=== PATIENT | male | born 1950 | race Caucasian/White ===

== ENCOUNTER 2020-05-30 17:52 | Emergency (ER) | payer OTHER ==
[~2020-05-30] VITALS: Ht 180.3 cm; Wt 68.0 kg
[~2020-05-30 17:52] MED LIST: HYDACE5 PO; TOBR.3OPSO OP
[2020-05-30 19:07] LABS: BASOPHILS ABSOLUTE AUTO 0.03 K/mm3 (0.00-0.23); BASOPHILS PERCENT AUTO 0 % (0-2); EOSINOPHILS ABSOLUTE AUTO 0.15 K/mm3 (0.00-0.68); EOSINOPHILS PERCENT AUTO 2 % (0-6); Hematocrit 36.6 % (37.0-53.0); Hemoglobin 12.5 g/dL (13.5-17.5); IMMATURE GRAN ABSOLUTE AUTO 0.04 K/mm3 (0.00-0.10); IMMATURE GRAN PERCENT AUTO 1 % (0-1); LYMPHOCYTES ABSOLUTE AUTO 0.82 K/mm3 (0.84-5.20); LYMPHOCYTES PERCENT AUTO 10 % (21-46); MONOCYTES ABSOLUTE AUTO 0.48 K/mm3 (0.16-1.47); MONOCYTES PERCENT AUTO 6 % (4-13); Mean Corpuscular HGB 30.4 pg (26.0-34.0); Mean Corpuscular HGB Conc 34.2 g/dL (31.5-36.5); Mean Corpuscular Volume 89 fL (80-100); Mean Platelet Volume 9.4 fL (9.1-12.4); NEUTROPHILS ABSOLUTE AUTO 6.65 K/mm3 (1.96-9.15); NEUTROPHILS PERCENT AUTO 81 % (41-73); Platelet Count 183 K/mm3 (150-400); RDW Coefficient Variation 13.3 % (11.7-14.2); Red Blood Cell Count 4.11 M/mm3 (4.30-5.90); White Blood Cell Count 8.17 K/mm3 (4.00-11.30)
[2020-05-30 19:30] LABS: Alanine Aminotransfer (ALT/SGP 14 U/L (12-78); Albumin, Blood 3.1 g/dL (3.4-5.0); Alk Phos 67 U/L (50-136); Anion Gap 8 mmol/L (6-16); Aspartate Aminotrans (AST/SGOT 9 U/L (12-37); Bilirubin, Total 0.6 mg/dL (0.1-1.0); Blood Urea Nitrogen 13 mg/dL (8-24); Bun/Creatinine Ratio 10.7 (12.0-20.0); CO2, Blood 24 mmol/L (21-32); Calcium, Blood 8.2 mg/dL (8.5-10.1); Chloride, Blood 97 mmol/L (98-108); Creatinine, Blood 1.21 mg/dL (0.60-1.20); Globulin, Blood 3.2 g/dL (2.2-4.0); Glomerular Filtration Rate >60 (60-); Glucose, Blood 111 mg/dL (70-99); Potassium, Blood 3.7 mmol/L (3.5-5.5); Sodium, Blood 129 mmol/L (136-145); Total Protein, Blood 6.3 g/dL (6.4-8.2)
[2020-05-30] MEDS ORDERED: TAMS.4ER (19:30)
[2020-05-30 19:42] LABS: Free Thyroxine 1.22 ng/dL (0.70-1.60)
[2020-05-30 19:44] LABS: Thyroid Stimulating Hormone 1.04 uIU/mL (0.360-4.800); Triiodothyronine, Free 1.93 pg/mL (2.18-3.98)
[2020-05-30] MEDS ORDERED: FINA5 PO (19:56)
[2020-05-30] MEDS ORDERED: LEVSOD25 PO (19:56)
[2020-05-30 21:08] LABS: Source, Urine Clean Catch
[2020-05-30 21:12] LABS: Appearance, Urine Clear (Clear); Bilirubin, Urine Neg (Neg); Blood, Urine Neg (Neg); Color, Urine Yellow (P-Yellow); Glucose Qualitative, Urine Neg (Neg); Ketones, Urine Neg (Neg); Leukocyte Esterase, Urine 1+ (Neg); Nitrite, Urine Neg (Neg); Protein, Urine Neg (Neg); Urobilinogen, Urine 1+ (Normal)
[2020-05-30 21:21] LABS: Bacteria Rare /hpf; Red Blood Cells, Urine Not Seen /hpf (0-2); Squamous Epithelial Cells Rare /hpf (Few); White Blood Cells, Urine 0-2 /hpf (0-5)
== END 2020-05-30 21:54 | disposition home or self-care (01) ==
LOC: ER 17:52
PROVIDERS: Emergency Medicine
DX: R55 Syncope and collapse (principal); I10 Essential (primary) hypertension; F03.90 Unspecified dementia, unspecified severity, without behavioral disturbance, psychotic disturbance, mood disturbance, and anxiety; Z88.0 Allergy status to penicillin; Z87.891 Personal history of nicotine dependence
CPT/HCPCS: 36415; 71045; 80053; 81001; 84439; 84443; 84481; 84484; 85025; 87086; 93005; 93010; 96360; 99285-25; J7030

== ENCOUNTER 2020-06-12 13:03 | Emergency (ER) | payer OTHER ==
[~2020-06-12] VITALS: Ht 180.3 cm; Wt 65.8 kg
[~2020-06-12 13:03] MED LIST changes: +FINA5 PO; +LEVSOD25 PO; +TAMS.4ER
[2020-06-12 14:43] LABS: BASOPHILS ABSOLUTE AUTO 0.04 K/mm3 (0.00-0.23); BASOPHILS PERCENT AUTO 1 % (0-2); EOSINOPHILS ABSOLUTE AUTO 0.17 K/mm3 (0.00-0.68); EOSINOPHILS PERCENT AUTO 2 % (0-6); Hematocrit 42.5 % (37.0-53.0); Hemoglobin 14.6 g/dL (13.5-17.5); IMMATURE GRAN ABSOLUTE AUTO 0.05 K/mm3 (0.00-0.10); IMMATURE GRAN PERCENT AUTO 1 % (0-1); LYMPHOCYTES ABSOLUTE AUTO 1.31 K/mm3 (0.84-5.20); LYMPHOCYTES PERCENT AUTO 18 % (21-46); MONOCYTES ABSOLUTE AUTO 0.52 K/mm3 (0.16-1.47); MONOCYTES PERCENT AUTO 7 % (4-13); Mean Corpuscular HGB 30.9 pg (26.0-34.0); Mean Corpuscular HGB Conc 34.4 g/dL (31.5-36.5); Mean Corpuscular Volume 90 fL (80-100); Mean Platelet Volume 8.9 fL (9.1-12.4); NEUTROPHILS ABSOLUTE AUTO 5.41 K/mm3 (1.96-9.15); NEUTROPHILS PERCENT AUTO 72 % (41-73); Platelet Count 196 K/mm3 (150-400); RDW Coefficient Variation 13.2 % (11.7-14.2); RDW Standard Deviation 43.9 fL (35.1-46.3); Red Blood Cell Count 4.73 M/mm3 (4.30-5.90)
[2020-06-12 15:05] LABS: Alanine Aminotransfer (ALT/SGP 15 U/L (12-78); Albumin, Blood 3.8 g/dL (3.4-5.0); Albumin/Globulin Ratio 1.1 (0.8-1.8); Alk Phos 82 U/L (50-136); Anion Gap 4 mmol/L (6-16); Aspartate Aminotrans (AST/SGOT 9 U/L (12-37); Bilirubin, Total 0.7 mg/dL (0.1-1.0); Blood Urea Nitrogen 12 mg/dL (8-24); Bun/Creatinine Ratio 10.7 (12.0-20.0); CO2, Blood 28 mmol/L (21-32); Calcium, Blood 8.9 mg/dL (8.5-10.1); Chloride, Blood 98 mmol/L (98-108); Creatinine, Blood 1.12 mg/dL (0.60-1.20); Globulin, Blood 3.6 g/dL (2.2-4.0); Glomerular Filtration Rate >60 (60-); Glucose, Blood 88 mg/dL (70-99); Magnesium, Blood 2.5 mg/dL (1.6-2.4); Sodium, Blood 130 mmol/L (136-145); Total Protein, Blood 7.4 g/dL (6.4-8.2)
== END 2020-06-12 15:23 | disposition home or self-care (01) ==
LOC: ER 13:03
PROVIDERS: Emergency Medicine
DX: R53.1 Weakness (principal); F03.90 Unspecified dementia, unspecified severity, without behavioral disturbance, psychotic disturbance, mood disturbance, and anxiety; N40.0 Benign prostatic hyperplasia without lower urinary tract symptoms; I10 Essential (primary) hypertension; Z87.891 Personal history of nicotine dependence; Z88.0 Allergy status to penicillin; Z79.899 Other long term (current) drug therapy
CPT/HCPCS: 36415; 80053; 83735; 85025; 93005; 93010; 99285-25

== ENCOUNTER 2021-08-10 12:35 | Inpatient (IN) | payer OTHER ==
[~2021-08-10] VITALS: Ht 180.3 cm; Wt 65.4 kg
[~2021-08-10 12:35] MED LIST changes: +ALBU90OI INH; +ATOR20 PO; +CYAN1000I IM; +DONE5 PO; +MELA3 PO; +QUET25 PO
[2021-08-10 15:01] LABS: Alanine Aminotransfer (ALT/SGP 17 U/L (12-78); Albumin, Blood 2.9 g/dL (3.4-5.0); Alk Phos 52 U/L (50-136); Anion Gap 9 mmol/L (6-16); Aspartate Aminotrans (AST/SGOT 13 U/L (12-37); Bilirubin, Total 0.7 mg/dL (0.1-1.0); Blood Urea Nitrogen 24 mg/dL (8-24); Bun/Creatinine Ratio 23.3 (12.0-20.0); CO2, Blood 22 mmol/L (21-32); Calcium, Blood 8.3 mg/dL (8.5-10.1); Chloride, Blood 104 mmol/L (98-108); Creatinine, Blood 1.03 mg/dL (0.60-1.20); Glomerular Filtration Rate >60 (60-); Glucose, Blood 98 mg/dL (70-99); Sodium, Blood 135 mmol/L (136-145); Total Protein, Blood 5.9 g/dL (6.4-8.2)
[2021-08-10 15:09] LABS: Source, Urine Voided
[2021-08-10 15:10] LABS: Base Excess Venous -0.2 mmol/L; Bicarbonate Venous 24.2 mmol/L (24.0-30.0); PCO2 Venous 31.5 mmHg (38-42); PO2 Venous 156 mmHg (38-42); pH Blood Venous 7.48 (7.34-7.37)
[2021-08-10 15:16] LABS: Appearance, Urine Clear (Clear); BASOPHILS PERCENT AUTO 0 % (0-2); Bilirubin, Urine Neg (Neg); Blood, Urine 1+ (Neg); Color, Urine Yellow (P-Yellow); EOSINOPHILS ABSOLUTE AUTO 0.01 K/mm3 (0.00-0.68); EOSINOPHILS PERCENT AUTO 0 % (0-6); Glucose Qualitative, Urine Neg (Neg); IMMATURE GRAN ABSOLUTE AUTO 0.01 K/mm3 (0.00-0.10); IMMATURE GRAN PERCENT AUTO 0 % (0-1); Ketones, Urine Neg (Neg); LYMPHOCYTES ABSOLUTE AUTO 0.91 K/mm3 (0.84-5.20); LYMPHOCYTES PERCENT AUTO 23 % (21-46); Leukocyte Esterase, Urine Neg (Neg); MONOCYTES ABSOLUTE AUTO 0.23 K/mm3 (0.16-1.47); MONOCYTES PERCENT AUTO 6 % (4-13); Mean Corpuscular HGB 37.6 pg (26.0-34.0); Mean Corpuscular HGB Conc 34.9 g/dL (31.5-36.5); Mean Corpuscular Volume 108 fL (80-100); NEUTROPHILS ABSOLUTE AUTO 2.89 K/mm3 (1.96-9.15); NEUTROPHILS PERCENT AUTO 71 % (41-73); Nitrite, Urine Neg (Neg); Protein, Urine Neg (Neg); RDW Coefficient Variation 16.4 % (11.7-14.2); RDW Standard Deviation 63.9 fL (35.1-46.3); Red Blood Cell Count 1.17 M/mm3 (4.30-5.90); Specific Gravity, Urine 1.015 (1.003-1.022); Urobilinogen, Urine NORM (Normal); White Blood Cell Count 4.05 K/mm3 (4.00-11.30)
[2021-08-10 15:17] LABS: Magnesium, Blood 2.1 mg/dL (1.6-2.4); Phosphorus, Blood 3.9 mg/dL (2.5-4.9); Troponin I 0.041 ng/mL (0.000-0.040)
[2021-08-10 15:18] LABS: International Normalized Ratio 1.18; Prothrombin Time Results 12.3 Sec (9.7-11.5)
[2021-08-10 15:21] LABS: Hemoglobin 4.4 g/dL (13.5-17.5)
[2021-08-10 15:22] LABS: Hematocrit 12.6 % (37.0-53.0); Platelet Count 9 K/mm3 (150-400)
[2021-08-10 15:34] LABS: Bacteria Few /hpf; Squamous Epithelial Cells Rare /hpf (Few); White Blood Cells, Urine 0-2 /hpf (0-5)
[2021-08-10 16:49] LABS: SARS-Cov-2 (COVID-19) PCR, MMC NEGATIVE (NEGATIVE)
[2021-08-11 04:48] LABS: Hematocrit 19.9 % (37.0-53.0); Hemoglobin 6.8 g/dL (13.5-17.5)
[2021-08-11 05:02] LABS: BASOPHILS PERCENT AUTO 0 % (0-2); EOSINOPHILS ABSOLUTE AUTO 0.05 K/mm3 (0.00-0.68); EOSINOPHILS PERCENT AUTO 1 % (0-6); Hematocrit 19.6 % (37.0-53.0); Hemoglobin 6.8 g/dL (13.5-17.5); IMMATURE GRAN ABSOLUTE AUTO 0.01 K/mm3 (0.00-0.10); IMMATURE GRAN PERCENT AUTO 0 % (0-1); LYMPHOCYTES ABSOLUTE AUTO 0.97 K/mm3 (0.84-5.20); LYMPHOCYTES PERCENT AUTO 26 % (21-46); MONOCYTES PERCENT AUTO 5 % (4-13); Mean Corpuscular HGB 32.7 pg (26.0-34.0); Mean Corpuscular HGB Conc 34.7 g/dL (31.5-36.5); NEUTROPHILS ABSOLUTE AUTO 2.53 K/mm3 (1.96-9.15); NEUTROPHILS PERCENT AUTO 67 % (41-73); RDW Coefficient Variation 20.5 % (11.7-14.2); RDW Standard Deviation 69.5 fL (35.1-46.3); Red Blood Cell Count 2.08 M/mm3 (4.30-5.90); White Blood Cell Count 3.76 K/mm3 (4.00-11.30)
[2021-08-11 05:10] LABS: Mean Corpuscular Volume 94 fL (80-100)
[2021-08-11 05:12] LABS: Platelet Count 5 K/mm3 (150-400)
--- NOTE | 2021-08-11 05:55 | NUR ---
RECIEVED PT ER ADMIT AT AROUND 0000. PT HAD BEEN WITH SITTER IN ER AFTER HE PULLED IV'S MID TRANSFUSION. HERE, SOFT WRIST RESTRAINTS WERE USED AT FIRST, HOWEVER PT WAS ABLE TO SLIP OUT AND ENDED UP PULLING ONE OUT OF TWO IV'S WELL GETTING OUT OF BED TO UNINATE IN TRASH CAN. PT WAS VERY UNSTEADY ON FEET AND NEEDED HELP BACK TO BED. LOCKED WRIST REASTRAINTS WERE USED NEXT AND WORKED TO STOP PT FROM GAING ACCESS TO IV AND FALL PREVENTION. PT IS ORIENTED TO SELF, REMAINS AGGITATED OVER RESTRAINTS AND DOES NOT KNOW OWN LIMITS. WILL BE HERE IN THE MORNING TO HELP PT ORIENT. 1U ADMINISTERED. BED ALRM ON AND STAFF WILL CONT TO MONITOR.
[2021-08-11 06:27] LABS: Anion Gap 7 mmol/L (6-16); Blood Urea Nitrogen 21 mg/dL (8-24); Bun/Creatinine Ratio 22.7 (12.0-20.0); CO2, Blood 23 mmol/L (21-32); Calcium, Blood 8.1 mg/dL (8.5-10.1); Chloride, Blood 106 mmol/L (98-108); Creatinine, Blood 0.92 mg/dL (0.60-1.20); Glomerular Filtration Rate >60 (60-); Glucose, Blood 92 mg/dL (70-99); Potassium, Blood 3.7 mmol/L (3.5-5.5); Sodium, Blood 136 mmol/L (136-145)
[2021-08-11 14:57] LABS: BASOPHILS PERCENT AUTO 0 % (0-2); EOSINOPHILS ABSOLUTE AUTO 0.05 K/mm3 (0.00-0.68); EOSINOPHILS PERCENT AUTO 1 % (0-6); Hematocrit 22.2 % (37.0-53.0); Hemoglobin 7.9 g/dL (13.5-17.5); IMMATURE GRAN ABSOLUTE AUTO 0.02 K/mm3 (0.00-0.10); IMMATURE GRAN PERCENT AUTO 0 % (0-1); LYMPHOCYTES ABSOLUTE AUTO 1.04 K/mm3 (0.84-5.20); LYMPHOCYTES PERCENT AUTO 23 % (21-46); MONOCYTES PERCENT AUTO 7 % (4-13); Mean Corpuscular HGB 32.9 pg (26.0-34.0); Mean Corpuscular HGB Conc 35.6 g/dL (31.5-36.5); Mean Corpuscular Volume 93 fL (80-100); Mean Platelet Volume 9.6 fL (9.1-12.4); NEUTROPHILS ABSOLUTE AUTO 3.19 K/mm3 (1.96-9.15); NEUTROPHILS PERCENT AUTO 69 % (41-73); RDW Coefficient Variation 19.8 % (11.7-14.2); RDW Standard Deviation 64.3 fL (35.1-46.3)
[2021-08-11 15:02] LABS: Platelet Count 6 K/mm3 (150-400)
--- NOTE | 2021-08-11 18:14 | NUR ---
SHIFT SUMMARY 71 Y MALE ADMITED WITH SEVERE ANEMIA AND HX OF DEMENTIA. PT HAD RECIEVED 1 UNITS PRBC'S TODAY AND 1 UNIT FFP TODAY FOR A TOTAL OF 3 UNITS DURING THIS STAY. PT TOLERATED WELL. PT HAD BEEN IN RESTRAINTS DURING NIGHT AND MORNING FOR FALL RISK AND TO PROTECT IV LINES. ARRIVED THIS MORNING AND HAS REMAINED WITH PT T/O DAY TO ASSIST WITH REDIRECTING AND ASSISTING WITH PERSONAL CARE AND RESTRAINTS WERE REMOVED AT THAT TIME. HGB INCREASED FROM 6.8 TO 7.9 AFTER TRANSFUSION AND PLATELETS FROM 5 TO 7. NO NEW ORDERS FOR BLOOD PRODUCTS AT THSI TIME. PT WAS MEDICATED X1 WITH APRESOLINE FOR ELEVATED BP. REMAINS AT BEDSIDE, NO OTHER CHANGES THIS SHIFT.
--- NOTE | 2021-08-11 23:38 | NUR ---
ASSESSED PT FOR FEVER - NO FEBRILE SYMPTOMS, PT IS ASLEEP IN BED. DENIES DIAPHORESIS, CLAMMINESS, CHILLS. ORAL TEMP IS 100.1. COVERED WITH A LIGHT BLANKET. WILL CONTINUE TO MONITOR.
[2021-08-12 05:10] LABS: BASOPHILS PERCENT AUTO 0 % (0-2); EOSINOPHILS ABSOLUTE AUTO 0.05 K/mm3 (0.00-0.68); EOSINOPHILS PERCENT AUTO 2 % (0-6); Hematocrit 19.8 % (37.0-53.0); Hemoglobin 6.9 g/dL (13.5-17.5); IMMATURE GRAN ABSOLUTE AUTO 0.01 K/mm3 (0.00-0.10); IMMATURE GRAN PERCENT AUTO 0 % (0-1); LYMPHOCYTES PERCENT AUTO 33 % (21-46); MONOCYTES ABSOLUTE AUTO 0.25 K/mm3 (0.16-1.47); MONOCYTES PERCENT AUTO 8 % (4-13); Mean Corpuscular HGB 32.7 pg (26.0-34.0); Mean Corpuscular HGB Conc 34.8 g/dL (31.5-36.5); Mean Corpuscular Volume 94 fL (80-100); NEUTROPHILS PERCENT AUTO 57 % (41-73); RDW Coefficient Variation 19.8 % (11.7-14.2); RDW Standard Deviation 64.7 fL (35.1-46.3); Red Blood Cell Count 2.11 M/mm3 (4.30-5.90); White Blood Cell Count 3.31 K/mm3 (4.00-11.30)
[2021-08-12 05:13] LABS: Platelet Count 5 K/mm3 (150-400)
[2021-08-12 05:53] LABS: Alanine Aminotransfer (ALT/SGP 15 U/L (12-78); Albumin, Blood 2.6 g/dL (3.4-5.0); Albumin/Globulin Ratio 1.1 (0.8-1.8); Alk Phos 53 U/L (50-136); Anion Gap 7 mmol/L (6-16); Aspartate Aminotrans (AST/SGOT 16 U/L (12-37); Bilirubin, Total 1.2 mg/dL (0.1-1.0); Blood Urea Nitrogen 23 mg/dL (8-24); Bun/Creatinine Ratio 21.1 (12.0-20.0); CO2, Blood 23 mmol/L (21-32); Calcium, Blood 7.9 mg/dL (8.5-10.1); Chloride, Blood 103 mmol/L (98-108); Creatinine, Blood 1.09 mg/dL (0.60-1.20); Globulin, Blood 2.4 g/dL (2.2-4.0); Glomerular Filtration Rate >60 (60-); Glucose, Blood 91 mg/dL (70-99); Lactate Dehydrogenase (Ld),Bld 223 U/L (100-240); Potassium, Blood 3.6 mmol/L (3.5-5.5); Sodium, Blood 133 mmol/L (136-145)
--- NOTE | 2021-08-12 07:24 | NUR ---
SHIFT SUMMARY ROBERT HAD A PLATELET COUNT OF 5, AND HGB OF 6.9. RECEIVED ORDERS FOR 1 UNIT PRBC AND 1 UNIT PLATELETS. ADMINISTERED 1UNIT PLATELETS, GAVE REPORT TO ONCOMING DAY SHIFT NURSE TO VERIFY SLIP FOR PRBC. PT LUNGS WHEEZY AFTER 1 UNIT PLATELETS. PT'S MAX TEMP LAST NIGHT WAS 100.1. NO C/O DIAPHORESIS, CHILLS, OR PAIN. WADE AT BEDSIDE, SPENT THE NIGHT. PT REMAINED FREE OF RESTRAINTS WITH NO ATTEMPTS TO REMOVE IV.
--- NOTE | 2021-08-12 17:33 | NUR ---
SHIFT SUMMARY 71 Y MALE ADMITED WITH SEVERE ANEMIA AND HX OF DEMENTIA. PT HAD RECIEVED 1 UNIT PLATLETS THIS MORNING AND 2 UNITS PRBC'S TODAY FOR A TOTAL OF 5 UNITS PRBC'S DURING THIS STAY. PT TOLERATED WELL. HAS REMAINED WITH PT T/O DAY TO ASSIST WITH REDIRECTING AND ASSISTING WITH PERSONAL CARE. HEMATOLOGY CONSULT CALLED IN TO DR. AMAYA ANSWEREING SERVICE FOR TOMORROW. NO OTHER CHANGES THIS SHIFT.
--- NOTE | 2021-08-13 04:27 | NUR ---
SHIFT SUMMARY AT THIS TIME, PT'S VSS AND PT DENIES ANY PAIN. LUNGS ARE COARSE IN UPPER LEFT LOBE. WADE AT BEDSIDE REPORTS SHE DOESN'T THINK THAT ROBERT IS IN PAIN, BUT HE SEEMS MORE SLEEPY TODAY. WADE ASSISTS DIVINE TO USE THE BATHROOM, AND ALSO WITH THE URINAL. HE HAS REMAINED CALM THIS EVENING WITH HER IN THE ROOM. PLAN FOR HEMATOLOGY CONSULT FRIDAY WITH DR. BROOKS.
--- NOTE | 2021-08-13 04:39 | NUR ---
SHIFT SUMMARY PT SLEPT WELL THIS SHIFT, REQUIRED ONLY ONE PRN DOSE OF TRAMADOL. CONSULTS WITH ORTHOPEDIC DR. SWEET FOR RIGHT FRACTURED HIP (POA IN ER FROM FALL AT HOME) AND VASCULAR CONSULT WITH DR. COULTER FOR EVALUATION OF VENOUS ULCERS/ARTERIAL ULCERS ON RLE PLANNED FOR FRIDAY. PT WITH IV IN NAVEED. VSS, NO ACUTE CHANGES.
[2021-08-13 05:15] LABS: BASOPHILS PERCENT AUTO 0 % (0-2); EOSINOPHILS ABSOLUTE AUTO 0.07 K/mm3 (0.00-0.68); EOSINOPHILS PERCENT AUTO 2 % (0-6); Hematocrit 25.4 % (37.0-53.0); IMMATURE GRAN ABSOLUTE AUTO 0.01 K/mm3 (0.00-0.10); IMMATURE GRAN PERCENT AUTO 0 % (0-1); LYMPHOCYTES ABSOLUTE AUTO 0.95 K/mm3 (0.84-5.20); LYMPHOCYTES PERCENT AUTO 30 % (21-46); MONOCYTES ABSOLUTE AUTO 0.26 K/mm3 (0.16-1.47); MONOCYTES PERCENT AUTO 8 % (4-13); Mean Corpuscular HGB 32.6 pg (26.0-34.0); Mean Corpuscular HGB Conc 35.4 g/dL (31.5-36.5); Mean Corpuscular Volume 92 fL (80-100); Mean Platelet Volume 11.6 fL (9.1-12.4); NEUTROPHILS ABSOLUTE AUTO 1.91 K/mm3 (1.96-9.15); NEUTROPHILS PERCENT AUTO 60 % (41-73); RDW Coefficient Variation 17.8 % (11.7-14.2); RDW Standard Deviation 57.2 fL (35.1-46.3); RETICULOCYTE COUNT PERCENT 1.09 % (0.50-2.50); Red Blood Cell Count 2.76 M/mm3 (4.30-5.90)
[2021-08-13 05:28] LABS: Platelet Count 24 K/mm3 (150-400)
--- NOTE | 2021-08-13 18:44 | NUR ---
SHIFT SUMMARY PT ALERT TO SELF AND FAMILY ONLY. AT THE BEDSIDE FOR THE ENTIRE SHIFT. IS PRIMARY CAREGIVER TO THE PATIENT AND ASSISTS WITH HIS CARE WHILE AT THE HOSPITAL. PT SEEN BY DR. AMAYA TODAY AND IS TO HAVE A BONE MARROW BIOPSY DONE TOMORROW. UP WITH A STAND BY ASSIST AND ABLE TO GET INTO THE CHAIR FOR DINNER. WORKED WITH P/T AND O/T. VSS. WILL REPORT TO NOC RN.
--- NOTE | 2021-08-14 05:05 | NUR ---
SHIFT SUMMARY: ROBERT IS A VERY QUITE MAN, ANSWERED ONLY A FEW QUESTIONS THE TENDS TO ANSWER FOR HIM. STAYS AT BEDSIDE AND ASSIST IN ALL CARE AND NEEDS. NO BEHAVORIAL ISSUES TONIGHT. ROBERT COOPERATIVE WITH ALL CARE AND HAS BEEN PLEASANT. FELL TO SLEEP EARLY AND SLEPT T/O THE NIGHT. NO ACUTE CHANGES WERE NOTED. CALL LIGHT IN REACH.
[2021-08-14 08:11] LABS: Hemoglobin 9.1 g/dL (13.5-17.5); Mean Corpuscular HGB 32.3 pg (26.0-34.0); Mean Corpuscular Volume 92 fL (80-100); Mean Platelet Volume 9.6 fL (9.1-12.4); RDW Coefficient Variation 17.2 % (11.7-14.2); Red Blood Cell Count 2.82 M/mm3 (4.30-5.90); White Blood Cell Count 3.56 K/mm3 (4.00-11.30)
[2021-08-14 08:20] LABS: Platelet Count 16 K/mm3 (150-400)
[2021-08-14 11:57] LABS: Hematocrit 25.6 % (37.0-53.0); Hemoglobin 8.9 g/dL (13.5-17.5); Mean Corpuscular HGB 32.4 pg (26.0-34.0); Mean Corpuscular HGB Conc 34.8 g/dL (31.5-36.5); Mean Corpuscular Volume 93 fL (80-100); Mean Platelet Volume 10.2 fL (9.1-12.4); Platelet Count 71 K/mm3 (150-400); RDW Coefficient Variation 17.5 % (11.7-14.2); RDW Standard Deviation 57.1 fL (35.1-46.3); Red Blood Cell Count 2.75 M/mm3 (4.30-5.90); White Blood Cell Count 3.38 K/mm3 (4.00-11.30)
--- NOTE | 2021-08-14 14:00 | NUR ---
PATIENT ARRIVED BACK FROM BONE MARROW BIOPSY OF LOWER SPINE. PATIENT DENIES ANY PAIN OR DISCOMFORT. SITE C/D/I. AT BEDSIDE AND PATIENT GIVEN LUNCH TRAY. DENIES ANY NEEDS AT THIS TIME.
--- NOTE | 2021-08-14 15:45 | NUR ---
Upon receiving a request for ACP education, I visit with patient and spouse, Marry. Advance Directive (AD) education was attempted and Marry explained that they have an AD on file at the [facility]. She then talks at length about solid family and neighborhood support, patient symptoms and bone marrow biopsy. She also discusses the of her brother and her granddaughter. I encourage self-care and provide therapeutic listening and grief support. I will continue to remain available to patient and family.
--- NOTE | 2021-08-14 17:07 | NUR ---
PATIENT A/O TO SELF AND FAMILY ONLY, AT BEDSIDE THROUGHOUT THE DAY ASSISTING WITH CARE. VSS, ON RA. 2 UNITS PLATELETS GIVEN THIS AM AND BONE MARROW BIOPSY DONE THIS AFTERNOON. BRUSING TO R EYE AND L HIP AND SMALL SCATTERED BRUISING T/O. UP WITH SBA TO RESTROOM. TOLERATING DIET. DENIES ANY PAIN OR DISCOMFORT. NO NEW CONCERNS THIS SHIFT.
--- NOTE | 2021-08-15 04:43 | NUR ---
SHIFT SUMMARY; NO ACUTE CHANGES TO REPORT. AT BEDSIDE, HELPS IN ALL CARE. FOLLOWED DIRECTIONS APPROPRIATLY. NO PAIN OR DISCOMFORT. VS WNL, AFEBRILE, CALL LIGHT IN REACH OF AND USED APPROPRIATLY.
[2021-08-15 09:34] LABS: BASOPHILS PERCENT AUTO 0 % (0-2); EOSINOPHILS ABSOLUTE AUTO 0.07 K/mm3 (0.00-0.68); EOSINOPHILS PERCENT AUTO 3 % (0-6); Hematocrit 25.8 % (37.0-53.0); Hemoglobin 8.8 g/dL (13.5-17.5); IMMATURE GRAN PERCENT AUTO 0 % (0-1); LYMPHOCYTES ABSOLUTE AUTO 0.85 K/mm3 (0.84-5.20); LYMPHOCYTES PERCENT AUTO 31 % (21-46); MONOCYTES ABSOLUTE AUTO 0.13 K/mm3 (0.16-1.47); MONOCYTES PERCENT AUTO 5 % (4-13); Mean Corpuscular HGB 32.4 pg (26.0-34.0); Mean Corpuscular HGB Conc 34.1 g/dL (31.5-36.5); Mean Corpuscular Volume 95 fL (80-100); Mean Platelet Volume 11.1 fL (9.1-12.4); NEUTROPHILS ABSOLUTE AUTO 1.66 K/mm3 (1.96-9.15); NEUTROPHILS PERCENT AUTO 61 % (41-73); Platelet Count 65 K/mm3 (150-400); RDW Coefficient Variation 17.4 % (11.7-14.2); RDW Standard Deviation 57.2 fL (35.1-46.3); Red Blood Cell Count 2.72 M/mm3 (4.30-5.90); White Blood Cell Count 2.71 K/mm3 (4.00-11.30)
[2021-08-15] MEDS ORDERED: Acetaminophen650 M1 PO (13:19)
--- NOTE | 2021-08-15 13:50 | NUR ---
PT AWAKE, RESTING QUIETLY IN BED AT START OF SHIFT. 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 PT UP INDEPENDENTLY TO BTHRM NEEDED. DR STOCKTON IN TO SEE PT, DISCUSSED PLAN OF CARE. PT WANTING TO GO HOME TODAY. PT TO F/U WITH ONCOLOGY AT D/C. REPORTED ALREADY HAVING CONTACT WITH DR HOWARD. SHE WILL CALL TODAY FOR F/U APPOINTMENT. PT TO HAVE LABS DRAWN ON FRIDAY, BEFORE APPT ON FRIDAY. SCRIPT SENT WITH PT/ FOR LAB. D/C INSTRUCTIONS REVIEWED WITH PT AND . VERBALIZED UNDERSTANDING. PT ASSISTED OUT TO SON'S CAR VIA W/C. DENIED FURTHER NEEDS.
[2021-08-20 13:11] LABS: CELLS ANALYZED 20 (.); CELLS COUNTED 20 (.); CELLS KARYOTYPED 4 (.); CYTOGENETIC RESULT Comment: (.); DIRECTOR REVIEW: Comment: (.); GTG BAND RESOLUTION ACHIEVED 400 (.); INTERPETATION Comment: (.); SPECIMEN TYPE Comment: (.)
[2021-08-21 09:13] LABS: Performing Lab SYMBIODX; Test Name BM BIOPSY
== END 2021-08-15 13:50 | disposition home health service (06) | DRG 841 ==
LOC: ER 12:35 → ERHOLD 12:36 → MEDS 12:36
PROVIDERS: Emergency Medicine; Internal Medicine; Internal Medicine Hematology & Oncology; Pathology Clinical Pathology/Laboratory Medicine; ADMIT Hospitalist
PROC: 30233N1 Transfusion of Nonautologous Red Blood Cells into Peripheral Vein, Percutaneous Approach (ICD-10-PCS; principal; 2021-08-11)
PROC: 30233K1 Transfusion of Nonautologous Frozen Plasma into Peripheral Vein, Percutaneous Approach (ICD-10-PCS; 2021-08-11)
PROC: 07DR3ZX Extraction of Iliac Bone Marrow, Percutaneous Approach, Diagnostic (ICD-10-PCS; 2021-08-14)
DX: C94.6 Myelodysplastic disease, not elsewhere classified (principal); D61.818 Other pancytopenia; E87.1 Hypo-osmolality and hyponatremia; Z20.822 Contact with and (suspected) exposure to COVID-19; I10 Essential (primary) hypertension; G31.83 Neurocognitive disorder with Lewy bodies; F02.80 Dementia in other diseases classified elsewhere, unspecified severity, without behavioral disturbance, psychotic disturbance, mood disturbance, and anxiety; G40.909 Epilepsy, unspecified, not intractable, without status epilepticus; E78.00 Pure hypercholesterolemia, unspecified; N40.0 Benign prostatic hyperplasia without lower urinary tract symptoms; R29.6 Repeated falls; Z98.890 Other specified postprocedural states; Z88.0 Allergy status to penicillin; Z79.51 Long term (current) use of inhaled steroids; Z79.899 Other long term (current) drug therapy
CPT/HCPCS: 20220; 36415; 36430; 70450; 71045; 77012; 80048; 80053; 81001; 81003; 82131; 82140; 82272; 82340; 82436; 82507; 82570; 82607; 82746; 82803; 83605; 83615; 83735; 83935; 83945; 84100; 84105; 84133; 84300; 84392; 84484; 84560; 85014; 85018; 85025; 85027; 85045; 85097; 85610; 86850; 86900; 86901; 86923; 88184; 88185; 93005; 93010; 96374; 96376; 97110; 97116; 97161; 97165; 97535; 99285-25; A9270; G0378; J0360; J7030; J7050; P9016; P9053; P9059; U0004

== ENCOUNTER → 2021-08-28 | Outpatient (CLI) | payer OTHER ==
[~2021-08-28] MED LIST changes: +Acetaminophen650 M1 PO; +LEVE500 PO; -TAMS.4ER; +TAMS.4ER PO
== END | disposition home or self-care (01) ==
LOC: LAB SHORT 11:38
PROVIDERS: Internal Medicine Hematology & Oncology
DX: D61.818 Other pancytopenia (principal)
CPT/HCPCS: 88184; 88185

== ENCOUNTER 2021-09-02 16:32 | Inpatient (IN) | payer OTHER ==
[~2021-09-02] VITALS: Ht 180.3 cm; Wt 66.2 kg
[~2021-09-02 16:32] MED LIST changes: -LEVE500 PO
[2021-09-02 17:15] LABS: BASOPHILS ABSOLUTE AUTO 0.01 K/mm3 (0.00-0.23); BASOPHILS PERCENT AUTO 0 % (0-2); EOSINOPHILS ABSOLUTE AUTO 0.02 K/mm3 (0.00-0.68); EOSINOPHILS PERCENT AUTO 1 % (0-6); IMMATURE GRAN ABSOLUTE AUTO 0.05 K/mm3 (0.00-0.10); IMMATURE GRAN PERCENT AUTO 2 % (0-1); LYMPHOCYTES ABSOLUTE AUTO 0.89 K/mm3 (0.84-5.20); LYMPHOCYTES PERCENT AUTO 32 % (21-46); MONOCYTES ABSOLUTE AUTO 0.25 K/mm3 (0.16-1.47); MONOCYTES PERCENT AUTO 9 % (4-13); Mean Corpuscular HGB 32.3 pg (26.0-34.0); Mean Corpuscular HGB Conc 35.2 g/dL (31.5-36.5); Mean Corpuscular Volume 92 fL (80-100); Mean Platelet Volume 13.6 fL (9.1-12.4); NEUTROPHILS PERCENT AUTO 57 % (41-73); NRBC ABSOLUTE 0.02 K/mm3 (0.00-0.02); NRBC Auto 0.7 /100 WBC (0.0-0.2); RDW Coefficient Variation 17.2 % (11.7-14.2); RDW Standard Deviation 55.5 fL (35.1-46.3); Red Blood Cell Count 1.55 M/mm3 (4.30-5.90); White Blood Cell Count 2.82 K/mm3 (4.00-11.30)
[2021-09-02 17:18] LABS: Hematocrit 14.2 % (37.0-53.0); Platelet Count 4 K/mm3 (150-400)
[2021-09-02 17:21] LABS: Alanine Aminotransfer (ALT/SGP 15 U/L (12-78); Albumin/Globulin Ratio 1.1 (0.8-1.8); Alk Phos 74 U/L (50-136); Anion Gap 8 mmol/L (6-16); Aspartate Aminotrans (AST/SGOT 13 U/L (12-37); Bilirubin, Total 1.1 mg/dL (0.1-1.0); Blood Urea Nitrogen 17 mg/dL (8-24); CO2, Blood 22 mmol/L (21-32); Calcium, Blood 8.1 mg/dL (8.5-10.1); Chloride, Blood 99 mmol/L (98-108); Globulin, Blood 2.8 g/dL (2.2-4.0); Glomerular Filtration Rate >60 (60-); Glucose, Blood 99 mg/dL (70-99); Sodium, Blood 129 mmol/L (136-145); Total Protein, Blood 5.8 g/dL (6.4-8.2); Troponin I <0.015 ng/mL (0.000-0.040)
[2021-09-02 19:37] LABS: Influenza A, PCR NEGATIVE (NEGATIVE); Influenza B, PCR NEGATIVE (NEGATIVE); Resp Syncytial Virus, PCR NEGATIVE (NEGATIVE); SARS-Cov-2 (COVID-19) PCR, MMC NEGATIVE (NEGATIVE)
[2021-09-03 05:21] LABS: Mean Corpuscular HGB 31.2 pg (26.0-34.0); Mean Corpuscular HGB Conc 35.8 g/dL (31.5-36.5); Mean Platelet Volume 10.5 fL (9.1-12.4); RDW Coefficient Variation 16.8 % (11.7-14.2); RDW Standard Deviation 49.8 fL (35.1-46.3); Red Blood Cell Count 1.89 M/mm3 (4.30-5.90); White Blood Cell Count 2.71 K/mm3 (4.00-11.30)
--- NOTE | 2021-09-03 05:25 | NUR ---
SHIFT SUMMARY A/O TO SELF AND FAMILY ONLY. 2 UNITS OF PRBC AND 1 UNIT OF PLATLETS GIVEN. BEDREST D/T CL HGB OF 5.0 AND MULITPLE SYNCOPAL EPISODES AT HOME. PT CONFUSED AND TRYING TO GET OOB T/O THE NIGHT. FREQUENT REDIRECTION NEEDED. BED IN LOWEST POSITION WITH CALL LIGHT IN REACH. WILL CONTINUE TO MONITOR AND REPORT TO ONCOMING RN.
[2021-09-03 05:54] LABS: Mean Corpuscular Volume 87 fL (80-100)
[2021-09-03 05:56] LABS: Hematocrit 16.5 % (37.0-53.0); Hemoglobin 5.9 g/dL (13.5-17.5)
[2021-09-03 05:57] LABS: Platelet Count 33 K/mm3 (150-400)
--- NOTE | 2021-09-03 08:15 | NUR ---
SEIZURE PT EXHIBITING S/S OF ABSENCE SZ, EYES OPEN AND STARING, NOT RESPONDING TO VERBAL CUES OR TOUCH. VSS 97.8, 16, 142/88. PT COMING BACK AROUND AND IS SPEAKING WITH STAFF AT THIS TIME, SAYS HE DOES NOT REMEMBER PRIOR FEW MINUTES, WILL MONITOR
[2021-09-03 17:03] LABS: Hemoglobin 6.1 g/dL (13.5-17.5); Mean Corpuscular HGB 32.3 pg (26.0-34.0); Mean Corpuscular Volume 87 fL (80-100); Mean Platelet Volume 10.2 fL (9.1-12.4); RDW Coefficient Variation 15.9 % (11.7-14.2); Red Blood Cell Count 1.89 M/mm3 (4.30-5.90); White Blood Cell Count 3.06 K/mm3 (4.00-11.30)
[2021-09-03 17:09] LABS: Hematocrit 16.5 % (37.0-53.0); Platelet Count 27 K/mm3 (150-400)
--- NOTE | 2021-09-03 18:31 | NUR ---
PT WITH ABSENCE SZ THIS AM, PER THIS IS NOT NEW FOR PT. EEG AND MRI OF HEAD ORDERED. 2 ADDITIONAL UNITS PRBC ORDERED THIS AFTERNOON HCT IS STILL 16.5, PLT 27 AND HBG IS 6.1. LORENA VEST IN PLACE D/T VERY HIGH FALL RISK. DR HOWARD CONSULTED, DR MELENDEZ SPOKE WITH HIM DIRECTLY. WILL CONTINUE TO MONITOR AND REPORT TO ONCOMING RN
[2021-09-04 05:33] LABS: Hematocrit 20.5 % (37.0-53.0); Hemoglobin 7.2 g/dL (13.5-17.5); Mean Corpuscular HGB 29.9 pg (26.0-34.0); Mean Corpuscular HGB Conc 35.1 g/dL (31.5-36.5); Mean Corpuscular Volume 85 fL (80-100); Mean Platelet Volume 10.9 fL (9.1-12.4); RDW Coefficient Variation 16.7 % (11.7-14.2); Red Blood Cell Count 2.41 M/mm3 (4.30-5.90); White Blood Cell Count 2.75 K/mm3 (4.00-11.30)
[2021-09-04 05:48] LABS: Platelet Count 23 K/mm3 (150-400)
[2021-09-04 06:22] LABS: Albumin, Blood 2.4 g/dL (3.4-5.0); Anion Gap 8 mmol/L (6-16); Blood Urea Nitrogen 29 mg/dL (8-24); Bun/Creatinine Ratio 28.2 (12.0-20.0); CHOL/HDL RATIO 3.1; CO2, Blood 23 mmol/L (21-32); Chloride, Blood 105 mmol/L (98-108); Cholesterol 103 mg/dL (50-200); Creatinine, Blood 1.03 mg/dL (0.60-1.20); Glomerular Filtration Rate >60 (60-); Glucose, Blood 98 mg/dL (70-99); HDL Cholesterol 33 mg/dL (>39); LDL/HDL RATIO 1.7; Low Density Lipoprotein Chol 55 mg/dL (0-110); Sodium, Blood 136 mmol/L (136-145); Triglycerides 74 mg/dL (30-160); Very Low Density Lipoprot Chol 14 mg/dL (6-32)
--- NOTE | 2021-09-04 06:26 | NUR ---
ATHLETIC TRAINING INTERNSHIP SUMMARY PT RECIEVED 2 UNITS PRBC'S THIS SHIFT. HGB THIS AM 7.2 UP FROM 6.1 YESTERDAY. PT AAOX2-3, ABLE TO ANSWER MOST YES/NO QUESTIONS AND REPORT HIS AND WHERE HE IS. LORENA VEST REMAINS ON PT IS STILL IMPULSIVE AT TIMES AND ATTEMPTS TO GET OOB WITHOUT ASSIST. FAMILY AT BEDSIDE THROUGH THE NIGHT, PT SEEMS TO DO BETTER WITH THEM PRESENT, SHE ALSO ASSISTS PT WITH USING URINAL AND OTHER NEEDS. VSS, WILL CONTINUE TO MONITOR.
--- NOTE | 2021-09-04 11:00 | NUR ---
LORENA VEST REMOVED, PT CALM AND COOPERATIVE, NOT ATTEMPTING TO GET OUT OF BED. SPOUSE AT BEDSIDE, WILL MONITOR
--- NOTE | 2021-09-04 18:55 | NUR ---
PT REMAINS OUT OF LORENA VEST AT THIS TIME, HE HAS NOT ATTEMPTED TO GET OOB, BUT DOES GET UP OUT OF CHAIR, CHAIR ALARM AND BED ALARM ARMED. SPOUSE IS AT BEDSIDE AND IS STAYING THIS NIGHT. PT/OT WORKING WITH PT AND RECOMMENDING H/H. BED IN LOWEST POSITION, CALL WEST IN REACH, WILL CONTINUE TO MONITOR AND REPORT TO ONCOMING RN
--- NOTE | 2021-09-05 05:10 | NUR ---
SHIFT SUMMARY: PATIENT IS A&O TO PERSON, PLACE AND FAMILY. IS AT BEDSIDE. VSS, REPORTING R BUTTOCK PAIN THIS SHIFT, THERE IS A BRUISE PRESENT S/P FALL AT HOME. TYLENOL WAS GIVEN WITH GOOD EFFECT X1. DURING THE NIGHT PATIENT IS INCREASINGLY UNSTEADY AND USES THE URINAL AT BEDSIDE WITH ASSISTANCE. MEDICAID ANALYST REPORTED PATIENT BECOMING UNRESPONSIVE FOR A FEW MOMENTS AND LEGS BECAME VERY WEAK, UNABLE TO SUPPORT WEIGHT. PATIENT WAS ASSISTED TO AN SITTING POSSITION ON THE BED. WHEN LEASE PURCHASE TRUCK DRIVER ENTERED ROOM FOR EVAL PATIENT WAS A&OX3, UNCHANGE FROM PREVIOUS ASSESMENT. BED ALARM IS ON FOR SAFETY.
[2021-09-05 08:23] LABS: Hematocrit 20.7 % (37.0-53.0); Hemoglobin 7.2 g/dL (13.5-17.5); Mean Corpuscular HGB 30.6 pg (26.0-34.0); Mean Corpuscular HGB Conc 34.8 g/dL (31.5-36.5); Mean Corpuscular Volume 88 fL (80-100); Mean Platelet Volume 11.9 fL (9.1-12.4); RDW Standard Deviation 53.1 fL (35.1-46.3); Red Blood Cell Count 2.35 M/mm3 (4.30-5.90); White Blood Cell Count 3.49 K/mm3 (4.00-11.30)
[2021-09-05 09:06] LABS: Platelet Count 19 K/mm3 (150-400)
--- NOTE | 2021-09-05 17:59 | NUR ---
SUMMARY PT SITTING UP IN THE CHAIR AT THE BEDSIDE EATING DINNER, PT HAS BEEN PLEASANTLY CONFUSED AND COOPERATIVE WITH CARE, IS AT THE BEDSIDE ASSISTING WITH CARES, PT RECIEVED ONE UNIT OF PLATELETS TODAY, JUAN DANIEL WELL, DENIES ANY SOB, OCC C/O PAIN IN HIS BUTTOCKS WHICH ARE BRUISED, VSS, WILL CONT TO MONITOR
[2021-09-06 05:25] LABS: BASOPHILS PERCENT AUTO 0 % (0-2); EOSINOPHILS ABSOLUTE AUTO 0.03 K/mm3 (0.00-0.68); EOSINOPHILS PERCENT AUTO 1 % (0-6); IMMATURE GRAN PERCENT AUTO 0 % (0-1); LYMPHOCYTES ABSOLUTE AUTO 0.85 K/mm3 (0.84-5.20); LYMPHOCYTES PERCENT AUTO 40 % (21-46); MONOCYTES ABSOLUTE AUTO 0.18 K/mm3 (0.16-1.47); MONOCYTES PERCENT AUTO 9 % (4-13); Mean Corpuscular HGB 30.1 pg (26.0-34.0); Mean Corpuscular Volume 89 fL (80-100); NEUTROPHILS ABSOLUTE AUTO 1.06 K/mm3 (1.96-9.15); NEUTROPHILS PERCENT AUTO 50 % (41-73); RDW Coefficient Variation 16.5 % (11.7-14.2); RDW Standard Deviation 51.8 fL (35.1-46.3); Red Blood Cell Count 1.76 M/mm3 (4.30-5.90); White Blood Cell Count 2.12 K/mm3 (4.00-11.30)
--- NOTE | 2021-09-06 05:48 | NUR ---
SHIFT SUMMARY: PATIENT IS PLEASANTLY CONFUSED AND WIL[place], IMPULSIVE AND HAS URGENCY. NEEDS ASSIST OF 2 WITH GAIT BELT AND FWW, PATIENT IS UNSTEADY. INC. OF URIN AT TIMES. LOW GRADE TEMP. WAS TREATED WITH TYLENOL WITH FAIR EFFECT. ROOM IS VERY WARM AND IS REPLACING BLANKETS WHEN WRITER TECHNICAL PUBLICATIONS REMOVES THEM. OTHERWISE VSS. BED ALARM IS ON FOR SAFETY.
[2021-09-06 05:57] LABS: Hematocrit 15.6 % (37.0-53.0); Hemoglobin 5.3 g/dL (13.5-17.5); Platelet Count 32 K/mm3 (150-400)
[2021-09-06 06:07] LABS: Albumin, Blood 2.4 g/dL (3.4-5.0); Anion Gap 7 mmol/L (6-16); Blood Urea Nitrogen 28 mg/dL (8-24); Bun/Creatinine Ratio 26.9 (12.0-20.0); CO2, Blood 24 mmol/L (21-32); Chloride, Blood 107 mmol/L (98-108); Creatinine, Blood 1.04 mg/dL (0.60-1.20); Glomerular Filtration Rate >60 (60-); Glucose, Blood 98 mg/dL (70-99); Phosphorus, Blood 4.7 mg/dL (2.5-4.9); Potassium, Blood 4.3 mmol/L (3.5-5.5); Sodium, Blood 138 mmol/L (136-145)
--- NOTE | 2021-09-06 12:30 | NUR ---
PT HAD AN EPISODE- PT SPOUSE ASSISTED HIM UP TO THE CHAIR AT THE BEDSIDE FOR LUNCH. SHE CALLED FOR ASSISTANCE ONCE HE WAS IN THE CHAIR. THIS RN ENTERED THE ROOM AT THAT TIME AND THE PT APPPEARED TO BE IN RESPIRATORY DISTRESS, AND WAS HYPERVENTILATING AND PANICKED LOOKING. SPOUSE STATED HE DOES THIS BEFORE HE HAS ONE OF THOSE EPISODES, HE NEEDS HIS INHALER. CALLED RT FOR INHALER. PT HYPERVENTILATED FOR MAYBE A FULL MINUTE THEN HIS EYES ROLLED BACK IN HIS HEAD AND HIS BODY SLUMPED TO THE LEFT SPASAMING AND JERKING IRREGULARLY FOR 15-30 SECONDS. THEN THE PT STOPPED BREATHING AT THAT TIME, STERNAL RUB AND A SHAKE AND HIS EYES POPPED OPEN AND HE WAS BREATHING IN A NORMAL RATE AGAIN. PT DID NOT RECALL THE INCIDENT AT ALL BUT HAD NO NOTICABLE DEFICITS OTHERWISE. CALLED TELE AND THE TECH STATED THE PT HAD A BRIEF DROP IN HIS HEART RATE DOWN TO 39 JUST PRIOR TO THE TIME THIS EVENT OCCURRED. CALLED DR KELLER AND UPDATED HER ABOUT THE EVENT NONE OF THE PREVIOUS ONES HAD BEEN WHITNESSED BY STAFF. IS AWARE OF THIS AND THE PREVIOUS EVENT THE PT HAD THIS MORNING THAT RESULTED IN AN ASSISTED FALL WITH THE BUILDING CUSTODIAN. PT SPOUSE IS AWARE THE PT SHOULD NOT BE AMBULATING TO THE BATHROOM AT THIS TIME BSC WILL BE USED.
[2021-09-06 13:46] LABS: Hematocrit 18.5 % (37.0-53.0); Hemoglobin 6.4 g/dL (13.5-17.5)
--- NOTE | 2021-09-06 18:43 | NUR ---
SHIFT SUMMARY- PT HGB WAS CRITICAL LOW ON MORNING LABS. AFTER THE FIRST UNIT H&H WAS CHECKED SECOND UNIT OK'D TO GIVE ONCE THE RESULT OF THE H&H WAS IN. AFTER BOTH UNITS WERE TRANSFUSED THE PT WAS HYPERTENSIVE. CALLED DR KELLER AND RECIEVED ORDER FOR PRN HYDRALIZINE, THAT WAS GIVEN AT 1800. BP WAS STILL ELEVATED AT THAT TIME SBP 174. WILL PASS ON TO NIGHT RN AND HAVE HER DO A RECHECK. PT HAD 2 EPISODES OF POSSIBLE SEIZURE ACTIVITY (SEE PREVIOUS NOTE FOR DETAILS OF THE EVENT). PT HAS A LARGE BRUISE DARK PURPLE ON THE ANTERIOR INNER THIGH (FROM THE BUTTOX DOWN TO BEHIND THE KNEE) DR PRESSLEY. PT CONTINUES TO BE IMPULSIVE, HIS IS STAYING IN THE ROOM WITH HIM, THIS HELPS WITH HIS IMPULSIVENESS.
[2021-09-07 06:01] LABS: Hematocrit 20.9 % (37.0-53.0); Hemoglobin 7.1 g/dL (13.5-17.5); Mean Corpuscular HGB 29.7 pg (26.0-34.0); Mean Corpuscular Volume 87 fL (80-100); Mean Platelet Volume 10.9 fL (9.1-12.4); RDW Coefficient Variation 15.3 % (11.7-14.2); RDW Standard Deviation 47.7 fL (35.1-46.3); Red Blood Cell Count 2.39 M/mm3 (4.30-5.90); White Blood Cell Count 2.73 K/mm3 (4.00-11.30)
[2021-09-07 06:19] LABS: Platelet Count 25 K/mm3 (150-400)
--- NOTE | 2021-09-07 07:04 | NUR ---
SHIFT SUMMARY PT IS A 71 Y/O MALE, ADMITTED FOR SYMPTOMATIC ANEMIA AND WITH REPORTED "ABSENT SEIZURE" EPISODES. NO NEURO EVENTS WITNESSED DURING THE NIGHT. PT IS A&O X SELF, IMPULSIVE IN GETTING OUT OF BED. PT'S SO IN THE ROOM. VITAL SIGNS STABLE. NO C/O ACUTE PAIN, NAUSEA OR SOB. NO ACUTE CHANGES IN PT CONDITION NTOED DURING THE NIGHT. WILL CONTINUE TO MONITOR AND TREAT PER EMAR UNTIL HAND OFF TO DAY SHIFT RN.
--- NOTE | 2021-09-07 17:04 | NUR ---
SHIFT SUMMARY- PT CONTINUES TO BE IMPULSIVE, BED AND CHAIR ALARMS ARE NEEDED FOR PT SAFETY. SPOUSE SEEMS TO BE HLEPING THE PT TO BE A LITTLE LESS IMPULSIVE AND HELPS HIM USE THE URINAL. PT TEMP WAS A LITTLE HIGH THIS MORNING BUT THE PT HAD 5 BLANKETS ON HIM. BLANKETS WERE REMOVED BY STAFF FOR A TEMP RECHECK, HOWEVER THEY WERE REPLACED BY THE SPOUSE BECAUSE THE PT C/O BEING COLD. TEMPERATURE IN THE ROOM WAS REDUCED A BIT AFTER THAT. DR DEBBIE ADAME FOR THE PT TO START TONIGHT. PT HAS NOT HAD ANY EPISODES NOTED TODAY. WILL CTM AND PASS ON TO NIGHT RN IN BEDSIDE REPORT. PT CURRENTLY LAYING IN BED CALL LIGHT IN REACH, SPOUSE AT THE BEDSIDE.
--- NOTE | 2021-09-08 03:49 | NUR ---
SHIFT SUMMARY PATIENT HAD NO ACUTE CHANGES OBSERVED. ALERT TO SELF AND SPOUSE, MOSTLY NON VERBAL. PIV REMAINS INTACT. IMPULSIVE TO BR. SPOUSE STAYING IN ROOM TO HELP KEEP PATIENT OUT OF RESTRAINTS. BED ALARM ACTIVATED. VSS/AFEBRILE. DENIES CHEST PAIN, SOB, AND N/V. AED TRAINER REPORTS NSR 64. CALL LIGHT IN REACH. BED IN LOWEST POSITION. WILL CONTINUE TO MONITOR UNTIL DAY SHIFT NURSE ASSUMES CARE.
[2021-09-08 06:16] LABS: Hematocrit 20.4 % (37.0-53.0); Hemoglobin 7.1 g/dL (13.5-17.5); Mean Corpuscular HGB 30.3 pg (26.0-34.0); Mean Corpuscular HGB Conc 34.8 g/dL (31.5-36.5); Mean Corpuscular Volume 87 fL (80-100); RDW Coefficient Variation 15.1 % (11.7-14.2); RDW Standard Deviation 46.7 fL (35.1-46.3); Red Blood Cell Count 2.34 M/mm3 (4.30-5.90); White Blood Cell Count 2.47 K/mm3 (4.00-11.30)
[2021-09-08 06:38] LABS: Alanine Aminotransfer (ALT/SGP 17 U/L (12-78); Albumin, Blood 2.9 g/dL (3.4-5.0); Alk Phos 94 U/L (50-136); Anion Gap 7 mmol/L (6-16); Aspartate Aminotrans (AST/SGOT 14 U/L (12-37); Bilirubin, Total 0.9 mg/dL (0.1-1.0); Blood Urea Nitrogen 25 mg/dL (8-24); Bun/Creatinine Ratio 22.7 (12.0-20.0); CO2, Blood 24 mmol/L (21-32); Calcium, Blood 8.3 mg/dL (8.5-10.1); Chloride, Blood 104 mmol/L (98-108); Globulin, Blood 2.8 g/dL (2.2-4.0); Glomerular Filtration Rate >60 (60-); Glucose, Blood 89 mg/dL (70-99); Platelet Count 16 K/mm3 (150-400); Potassium, Blood 4.2 mmol/L (3.5-5.5); Sodium, Blood 135 mmol/L (136-145); Total Protein, Blood 5.7 g/dL (6.4-8.2)
[2021-09-08 13:50] LABS: Hematocrit 19.9 % (37.0-53.0); Hemoglobin 7.1 g/dL (13.5-17.5); Mean Corpuscular HGB 30.6 pg (26.0-34.0); Mean Corpuscular HGB Conc 35.7 g/dL (31.5-36.5); Mean Corpuscular Volume 86 fL (80-100); Mean Platelet Volume 9.8 fL (9.1-12.4); RDW Coefficient Variation 14.6 % (11.7-14.2); RDW Standard Deviation 44.3 fL (35.1-46.3); Red Blood Cell Count 2.32 M/mm3 (4.30-5.90); White Blood Cell Count 2.48 K/mm3 (4.00-11.30)
[2021-09-08 14:16] LABS: Platelet Count 13 K/mm3 (150-400)
--- NOTE | 2021-09-08 17:49 | NUR ---
SHIFT SUMMARY PT RECIEVED ONE PACK RBC AND ONE UNIT PLATELETS TODAY DUE TO CRIT LOW PLATELET COUNT AND H+H. IS STILL IN ROOM WITH PT. HE HAD A LOW GRADE FEVER THIS AFTERNOON AND WAS GIVEN TYLENOL WHICH BROUGHT HIS FEVER DOWN. HE HAS BEEN RESTING COMFORTABLY IN BED. I TOLD HIM AND HIS HE WAS TO REMAIN BEDREST BECAUSE i DIDN'T WANT TO RISK ANY FALLS. WILL CONTINUE TO MONITOR.
--- NOTE | 2021-09-09 03:22 | NUR ---
SHIFT SUMMARY PATIENT HAD NO ACUTE CHANGES OBSERVED. AXOX 2 AND BEDREST. SPOUSE PRESENT T/O SHIFT. TAKES MEDICATION WHOLE WITH WATER. VSS/AFEBRILE. DENIES PAIN, SOB, AND N/V. IMPULSIVE AND BED ALARM ACTIVATED. CALL LIGHT IN REACH. BED IN LOWEST POSITION. WILL CONTINUE TO MONITOR UNTIL DAY SHIFT NURSE ASSUMES CARE.
[2021-09-09 04:44] LABS: Hemoglobin 6.8 g/dL (13.5-17.5); Mean Corpuscular HGB 30.8 pg (26.0-34.0); Mean Corpuscular HGB Conc 35.8 g/dL (31.5-36.5); Mean Corpuscular Volume 86 fL (80-100); Mean Platelet Volume 10.6 fL (9.1-12.4); RDW Coefficient Variation 14.4 % (11.7-14.2); RDW Standard Deviation 44.3 fL (35.1-46.3); Red Blood Cell Count 2.21 M/mm3 (4.30-5.90); White Blood Cell Count 2.07 K/mm3 (4.00-11.30)
[2021-09-09 05:01] LABS: Platelet Count 33 K/mm3 (150-400)
--- NOTE | 2021-09-09 05:45 | NUR ---
HgB: 6.[address] JUAN ORDERED ONE UNIT PRBC. HgB WAS 7.1
--- NOTE | 2021-09-09 10:54 | NUR ---
CALLED DR KELLER- LEFT A MESSAGE EARLIER THIS SHIFT. RECIEVED A NEW ORDER TO TRANSFUSE 1 UINIT PRBC, HOWEVER THE PT WAS ALREADY RECIEVING 1 UNIT AT THE TIME. WAITING FOR A CALL BACK. 1 UNIT INFUSION PRBC COMPLETED. CALLED DR KELLER TO DETERMINE IF SHE WOULD LIKE A REPEAT H&H, AND IF SHE WOULD LIKE THE SECOND UNIT TRANSFUSED OR NOT. STILL NO RESPONSE. WILL SPEAK WITH HER ON MORNING ROUNDS. PT VS STABLE AT THIS TIME NO S&S OF DISTRESS NOTED. WILL CTM.
--- NOTE | 2021-09-09 12:29 | NUR ---
SPOKE TO DR KELLER- RECIEVED ORDER FOR REPEAT H&H PRIOR TO SECOND UNIT PRBC'S IS ORDERED FROM THE BLOOD BANK. PLACED THE ORDER IN ORDER MANAGEMENT. BENITO CALL WITH RESULTS.
[2021-09-09 13:03] LABS: Hematocrit 26.9 % (37.0-53.0); Hemoglobin 9.1 g/dL (13.5-17.5)
--- NOTE | 2021-09-09 13:41 | NUR ---
CALLED DR KELLER WITH THE RESULTS OF THE H&H- PT NOW UP TO 9.1 SECOND UNIT NOT NEEDED PLAN IS TO DC THE PT HOME TODAY AND HE IS TO FOLLOW UP WITH HEMATOLOGY.
[2021-09-09] MEDS ORDERED: LEVE500 PO ×2 (14:26)
--- NOTE | 2021-09-09 15:30 | NUR ---
DISCHARGE NOTE- PT AND SPOUSE WERE GIVEN VERBAL AND WRITTEN DISCHARGE INSTRUCTIONS AND MEDS WERE FAXED TO [facility] PER THEIR REQUEST. THHEY ACKNOWLEDGED UNDERSTANDING OF THE INSTRUCTIONS, SPOUSE PLANS TO MAKE FOLLOW UP APPPOINTMENTS TOMORROW MORNING. PPT WAS ASSISTED INTO A WC 1PA, AND ESCORTED OUT VIA WC BY THE PROOF OPERATOR. NO S&S OF DISTRESS AT THE TIME OF DISCHARGE.
== END 2021-09-09 15:03 | disposition home or self-care (01) | DRG 812 ==
LOC: ER 16:32 → MEDS 16:33
PROVIDERS: Emergency Medicine; Internal Medicine; ADMIT Internal Medicine
PROC: 30233N1 Transfusion of Nonautologous Red Blood Cells into Peripheral Vein, Percutaneous Approach (ICD-10-PCS; principal; 2021-09-03)
PROC: 30233R1 Transfusion of Nonautologous Platelets into Peripheral Vein, Percutaneous Approach (ICD-10-PCS; 2021-09-03)
DX: D46.9 Myelodysplastic syndrome, unspecified (principal); D61.818 Other pancytopenia; E87.1 Hypo-osmolality and hyponatremia; I10 Essential (primary) hypertension; Z20.822 Contact with and (suspected) exposure to COVID-19; G31.83 Neurocognitive disorder with Lewy bodies; E78.5 Hyperlipidemia, unspecified; F02.80 Dementia in other diseases classified elsewhere, unspecified severity, without behavioral disturbance, psychotic disturbance, mood disturbance, and anxiety; N40.0 Benign prostatic hyperplasia without lower urinary tract symptoms; R29.6 Repeated falls; G40.909 Epilepsy, unspecified, not intractable, without status epilepticus; E78.00 Pure hypercholesterolemia, unspecified; Z98.890 Other specified postprocedural states; Z79.899 Other long term (current) drug therapy
CPT/HCPCS: 0241U; 36415; 36430; 70551; 71045; 80053; 80061; 80069; 82550; 82728; 83540; 83550; 84484; 85014; 85018; 85025; 85027; 86850; 86900; 86901; 86923; 93005; 93010; 94640; 94664; 94760; 95819; 97110; 97116; 97162; 97166; 97530-CQ; 97535; 99285-25; A9270; G0378; J0360; J7040; J7050; P9016; P9035; P9053

== ENCOUNTER 2021-09-15 15:20 | Inpatient (IN) | payer OTHER ==
[~2021-09-15] VITALS: Ht 180.3 cm; Wt 66.9 kg
[~2021-09-15 15:20] MED LIST changes: +LEVE500 PO
[2021-09-15 15:42] LABS: BASOPHILS PERCENT AUTO 0 % (0-2); EOSINOPHILS ABSOLUTE AUTO 0.03 K/mm3 (0.00-0.68); EOSINOPHILS PERCENT AUTO 1 % (0-6); IMMATURE GRAN ABSOLUTE AUTO 0.01 K/mm3 (0.00-0.10); IMMATURE GRAN PERCENT AUTO 1 % (0-1); LYMPHOCYTES ABSOLUTE AUTO 0.79 K/mm3 (0.84-5.20); LYMPHOCYTES PERCENT AUTO 36 % (21-46); MONOCYTES ABSOLUTE AUTO 0.16 K/mm3 (0.16-1.47); MONOCYTES PERCENT AUTO 7 % (4-13); Mean Corpuscular HGB 30.5 pg (26.0-34.0); Mean Corpuscular HGB Conc 34.5 g/dL (31.5-36.5); Mean Corpuscular Volume 88 fL (80-100); NEUTROPHILS PERCENT AUTO 55 % (41-73); RDW Coefficient Variation 13.9 % (11.7-14.2); RDW Standard Deviation 43.5 fL (35.1-46.3); Red Blood Cell Count 1.97 M/mm3 (4.30-5.90); White Blood Cell Count 2.19 K/mm3 (4.00-11.30)
[2021-09-15 15:59] LABS: Albumin, Blood 2.9 g/dL (3.4-5.0); Bilirubin, Total 1.3 mg/dL (0.1-1.0); Bun/Creatinine Ratio 22.8 (12.0-20.0); Calcium, Blood 8.4 mg/dL (8.5-10.1); Creatinine, Blood 1.23 mg/dL (0.60-1.20); Potassium, Blood 3.9 mmol/L (3.5-5.5); Total Protein, Blood 5.9 g/dL (6.4-8.2)
[2021-09-15 16:04] LABS: Hematocrit 17.4 % (37.0-53.0); Platelet Count 2 K/mm3 (150-400)
[2021-09-16 04:58] LABS: BASOPHILS PERCENT AUTO 0 % (0-2); EOSINOPHILS ABSOLUTE AUTO 0.02 K/mm3 (0.00-0.68); EOSINOPHILS PERCENT AUTO 1 % (0-6); Hematocrit 19.4 % (37.0-53.0); Hemoglobin 6.8 g/dL (13.5-17.5); IMMATURE GRAN ABSOLUTE AUTO 0.01 K/mm3 (0.00-0.10); IMMATURE GRAN PERCENT AUTO 0 % (0-1); LYMPHOCYTES PERCENT AUTO 35 % (21-46); MONOCYTES ABSOLUTE AUTO 0.18 K/mm3 (0.16-1.47); MONOCYTES PERCENT AUTO 8 % (4-13); Mean Corpuscular HGB 30.1 pg (26.0-34.0); Mean Corpuscular HGB Conc 35.1 g/dL (31.5-36.5); Mean Corpuscular Volume 86 fL (80-100); Mean Platelet Volume 11.6 fL (9.1-12.4); NEUTROPHILS ABSOLUTE AUTO 1.26 K/mm3 (1.96-9.15); NEUTROPHILS PERCENT AUTO 56 % (41-73); RDW Coefficient Variation 13.7 % (11.7-14.2); RDW Standard Deviation 42.5 fL (35.1-46.3); Red Blood Cell Count 2.26 M/mm3 (4.30-5.90); White Blood Cell Count 2.27 K/mm3 (4.00-11.30)
[2021-09-16 05:22] LABS: Platelet Count 23 K/mm3 (150-400)
[2021-09-16 05:50] LABS: Anion Gap 6 mmol/L (6-16); Blood Urea Nitrogen 26 mg/dL (8-24); Bun/Creatinine Ratio 26.9 (12.0-20.0); CO2, Blood 23 mmol/L (21-32); Calcium, Blood 8.4 mg/dL (8.5-10.1); Chloride, Blood 111 mmol/L (98-108); Creatinine, Blood 0.97 mg/dL (0.60-1.20); Glomerular Filtration Rate >60 (60-); Glucose, Blood 100 mg/dL (70-99); Potassium, Blood 3.8 mmol/L (3.5-5.5); Sodium, Blood 140 mmol/L (136-145)
--- NOTE | 2021-09-16 16:41 | NUR ---
DAY SHIFT SUMMARY PLEASANTLY CONFUSED PT WITH DEMINTIA. DAUGHTER AT BEDSIDE. PT HIGH RISK FOR FALLS, VERY UNSTEADY ON FEET. BED ALARM ON. ONE UNIT OF PRBC TODAY, TOLLERATED WELL. PT ON RA, URINAL AT BEDSIDE, BEDSIDE TOILET IF NEEDED. CALL LIGHT WITHIN REACH AND INTENTIONAL FREQUENT ROUNDING D/T DEMINTIA AND FALL RISK.
--- NOTE | 2021-09-17 04:49 | NUR ---
SHIFT SUMMARY PT AOX2 AT TIMES BUT MOSTLY CONFUSED WITH FAMILY AT BEDSIDE WHO SPEAKS FOR THE PT MOST OF THE TIME. PT RESPONDS AT TIMES BUT NOT OFTEN AND VERY IMPULSIVE, BED ALARM SET. PT FAMILY EDUCATED ON SAFETY MEASURES WHILE AT THE HOSPITAL TO PREVENT THE PT FROM A FALL. FAMILY CONTINUES TO GET PT UP AGAINST STAFF ADVICE ABOUT WEAKNESS AND AN UNSTEADY GAIT. PT HAD A SLIGHT FEVER AND MEDICATED FOR EFFECTIVENESS PER EMAR. PT RESTED MOST OF THIS SHIFT WITH FAMILY AT BEDSIDE, WILL CONTINUE TO MONITOR UNTIL REPORT IS GIVEN.
[2021-09-17 05:08] LABS: Hematocrit 20.1 % (37.0-53.0); Hemoglobin 7.1 g/dL (13.5-17.5); Mean Corpuscular HGB 30.6 pg (26.0-34.0); Mean Corpuscular HGB Conc 35.3 g/dL (31.5-36.5); Mean Corpuscular Volume 87 fL (80-100); Mean Platelet Volume 12.3 fL (9.1-12.4); RDW Coefficient Variation 13.5 % (11.7-14.2); RDW Standard Deviation 41.5 fL (35.1-46.3); Red Blood Cell Count 2.32 M/mm3 (4.30-5.90); White Blood Cell Count 2.06 K/mm3 (4.00-11.30)
[2021-09-17 05:21] LABS: Platelet Count 15 K/mm3 (150-400)
[2021-09-17 05:47] LABS: Anion Gap 6 mmol/L (6-16); Blood Urea Nitrogen 21 mg/dL (8-24); Bun/Creatinine Ratio 24.5 (12.0-20.0); CO2, Blood 23 mmol/L (21-32); Calcium, Blood 8.1 mg/dL (8.5-10.1); Chloride, Blood 108 mmol/L (98-108); Creatinine, Blood 0.86 mg/dL (0.60-1.20); Glomerular Filtration Rate >60 (60-); Glucose, Blood 94 mg/dL (70-99); Potassium, Blood 4.1 mmol/L (3.5-5.5); Sodium, Blood 137 mmol/L (136-145)
--- NOTE | 2021-09-17 11:03 | NUR ---
PT VISITOR NON-COMPLIANCE PT IS HIGH FALL RISK. LEWY BODY DEMENITIA AND PANCYTOPENIA. BED ALARM HAS BEEN TURNED ON SEVERAL TIMES TO KEEP PT FROM WONDERING THE ROOM. PT'S PRESENT IN ROOM, CONTINURES TO TURN BED ALARM OFF AND ENCOURAGES HIM TO WALK TO THE BATHROOM ON HIS OWN. HAS REPEATEDLY BEEN EDUCATED ON FALL PRECAUTIONS AND FALL RISK, SHE CHOOSES TO IGNORE AND CONTINUES TO TURN BED ALARM OFF AND ENCOURAGE ROAMING IN ROOM.
--- NOTE | 2021-09-17 16:45 | NUR ---
DAY SHIFT SUMMARY LEWY BODY DEMENTIA PT WITH PANCYTOPENIA. PLATELET COUNT AT 15 THIS AM. PRESENT IN ROOM. CONTINUES TO TURN BED ALARM OFF AND ENCOURAGES PT TO WALK TO BATHROOM ON HIS OWN. LEAVES THE ROOM WITHOUT ALERTING STAFF AND LEAVES BED ALARM OFF. PT HAS BEEN FOUND SEVERAL TIMES ROAMING HIS ROOM ALONE STATING "LOOKING FOR MY ". DR HOWARD CONSULT SCHEDULED FOR TODAY, AT TIME OF THIS WRITING THE DR HAS NOT CAME BY. PT HAS EXPERIENCED 3 NOSEBLEEDS TODAY. BRIGHT RED BLOOD, EASY TO STOP. DR RODRIGUEZ MADE AWARE. LABS ORDERED. CALL LIGHT WITHIN REACH OF PT WITH FREQUENT ROUNDING.
[2021-09-17 18:21] LABS: BASOPHILS PERCENT AUTO 0 % (0-2); EOSINOPHILS ABSOLUTE AUTO 0.02 K/mm3 (0.00-0.68); EOSINOPHILS PERCENT AUTO 1 % (0-6); Hemoglobin 7.1 g/dL (13.5-17.5); IMMATURE GRAN ABSOLUTE AUTO 0.01 K/mm3 (0.00-0.10); IMMATURE GRAN PERCENT AUTO 0 % (0-1); LYMPHOCYTES PERCENT AUTO 43 % (21-46); MONOCYTES ABSOLUTE AUTO 0.21 K/mm3 (0.16-1.47); MONOCYTES PERCENT AUTO 9 % (4-13); Mean Corpuscular HGB 30.5 pg (26.0-34.0); Mean Corpuscular HGB Conc 35.5 g/dL (31.5-36.5); Mean Corpuscular Volume 86 fL (80-100); Mean Platelet Volume 12.6 fL (9.1-12.4); NEUTROPHILS ABSOLUTE AUTO 1.11 K/mm3 (1.96-9.15); NEUTROPHILS PERCENT AUTO 47 % (41-73); RDW Coefficient Variation 13.5 % (11.7-14.2); RDW Standard Deviation 41.3 fL (35.1-46.3); Red Blood Cell Count 2.33 M/mm3 (4.30-5.90); White Blood Cell Count 2.35 K/mm3 (4.00-11.30)
[2021-09-17 18:24] LABS: Platelet Count 11 K/mm3 (150-400)
--- NOTE | 2021-09-17 18:35 | NUR ---
CRITICAL LAB LAB CALLED WITH PLATELET COUNT OF 11. DR RODRIGUEZ NOTIFIED. PER DR RODRIGUEZ, LET LINE INSPECTOR KNOW OF LAB AND THAT IF PT CONTINUES TO HAVE NOSE BLEEDS TO CALL FOR ORDERS. WILL SHARE INFORMATION WITH LINE INSPECTOR NURSE DURING REPORT.
--- NOTE | 2021-09-18 03:56 | NUR ---
AS400 OPERATOR SUMMARY PATIENT HAD A FAIR SHIFT. V/S WERE STABLE. HE DID NOT LODGE ANY COMPLAINT OVERNIGHT. WILL CONTINUE TO MONITOR HIM.
[2021-09-18 08:22] LABS: Hematocrit 21.2 % (37.0-53.0); Hemoglobin 7.4 g/dL (13.5-17.5); Mean Corpuscular HGB 30.2 pg (26.0-34.0); Mean Corpuscular HGB Conc 34.9 g/dL (31.5-36.5); Mean Corpuscular Volume 87 fL (80-100); RDW Coefficient Variation 13.5 % (11.7-14.2); RDW Standard Deviation 41.9 fL (35.1-46.3); Red Blood Cell Count 2.45 M/mm3 (4.30-5.90); White Blood Cell Count 2.05 K/mm3 (4.00-11.30)
[2021-09-18 08:27] LABS: Platelet Count 10 K/mm3 (150-400)
--- NOTE | 2021-09-18 13:44 | NUR ---
DR. HOWARD AT BEDSIDE FOR BM BIOPSY.
[2021-09-18] MEDS ORDERED: PRED20 PO (14:40)
--- NOTE | 2021-09-18 15:01 | NUR ---
PATIENT DISCHARGED TO HOME ACCOMPANIED BY HIS . PT IS S/P BM BIOPSY BY DR. HOWARD. PT'S VERBALIZED UNDERSTANDING OF D/C INSTRUCTIONS. RX FOR PREDNISONE CALLED IN TO [facility] BY DR. HOWARD. IV SALINE LOCK REMOVED WITHOUT INCIDENT. OFF UNIT VIA W/C AT 1500. NO BELONGINGS LEFT BEHIND IN ROOM.
== END 2021-09-18 14:59 | disposition home or self-care (01) | DRG 809 ==
LOC: ER 15:20 → MEDS 15:21 → ERHOLD 15:21 → MEDS 09-16 01:40
PROVIDERS: Emergency Medicine; Internal Medicine; ADMIT Hospitalist
PROC: 30233N1 Transfusion of Nonautologous Red Blood Cells into Peripheral Vein, Percutaneous Approach (ICD-10-PCS; principal; 2021-09-16)
PROC: 30233R1 Transfusion of Nonautologous Platelets into Peripheral Vein, Percutaneous Approach (ICD-10-PCS; 2021-09-16)
DX: D61.818 Other pancytopenia (principal); N17.9 Acute kidney failure, unspecified; G31.83 Neurocognitive disorder with Lewy bodies; F02.80 Dementia in other diseases classified elsewhere, unspecified severity, without behavioral disturbance, psychotic disturbance, mood disturbance, and anxiety; N40.0 Benign prostatic hyperplasia without lower urinary tract symptoms; E78.00 Pure hypercholesterolemia, unspecified; D69.6 Thrombocytopenia, unspecified; G40.909 Epilepsy, unspecified, not intractable, without status epilepticus; Z98.890 Other specified postprocedural states; Z87.891 Personal history of nicotine dependence; Z88.0 Allergy status to penicillin; Z79.899 Other long term (current) drug therapy
CPT/HCPCS: 36415; 36430; 70450; 80048; 80053; 85025; 85027; 86850; 86900; 86901; 86923; 90686; 93005; 93010; 99285-25; A9270; G0008; G0378; J7030; P9016; P9035

== ENCOUNTER 2021-09-26 11:50 | Emergency (ER) | payer OTHER ==
[~2021-09-26] VITALS: Ht 180.3 cm; Wt 66.2 kg
[~2021-09-26 11:50] MED LIST changes: +PRED20 PO
[2021-09-26 12:17] LABS: BASOPHILS PERCENT AUTO 0 % (0-2); EOSINOPHILS PERCENT AUTO 0 % (0-6); Hematocrit 19.6 % (37.0-53.0); Hemoglobin 6.8 g/dL (13.5-17.5); IMMATURE GRAN ABSOLUTE AUTO 0.03 K/mm3 (0.00-0.10); IMMATURE GRAN PERCENT AUTO 1 % (0-1); LYMPHOCYTES ABSOLUTE AUTO 1.74 K/mm3 (0.84-5.20); LYMPHOCYTES PERCENT AUTO 43 % (21-46); MONOCYTES ABSOLUTE AUTO 0.35 K/mm3 (0.16-1.47); MONOCYTES PERCENT AUTO 9 % (4-13); Mean Corpuscular HGB 30.5 pg (26.0-34.0); Mean Corpuscular HGB Conc 34.7 g/dL (31.5-36.5); Mean Corpuscular Volume 88 fL (80-100); NEUTROPHILS ABSOLUTE AUTO 1.93 K/mm3 (1.96-9.15); NEUTROPHILS PERCENT AUTO 48 % (41-73); RDW Coefficient Variation 13.2 % (11.7-14.2); RDW Standard Deviation 41.8 fL (35.1-46.3); Red Blood Cell Count 2.23 M/mm3 (4.30-5.90); White Blood Cell Count 4.05 K/mm3 (4.00-11.30)
[2021-09-26 12:27] LABS: Platelet Count 2 K/mm3 (150-400)
[2021-09-26 12:53] LABS: Alanine Aminotransfer (ALT/SGP 24 U/L (12-78); Albumin, Blood 3.1 g/dL (3.4-5.0); Alk Phos 76 U/L (50-136); Anion Gap 10 mmol/L (6-16); Aspartate Aminotrans (AST/SGOT 11 U/L (12-37); Bilirubin, Total 1.3 mg/dL (0.1-1.0); Blood Urea Nitrogen 33 mg/dL (8-24); Bun/Creatinine Ratio 26.2 (12.0-20.0); CO2, Blood 22 mmol/L (21-32); Calcium, Blood 8.9 mg/dL (8.5-10.1); Chloride, Blood 104 mmol/L (98-108); Creatinine, Blood 1.26 mg/dL (0.60-1.20); Globulin, Blood 3.2 g/dL (2.2-4.0); Glomerular Filtration Rate 56 (60-); Glucose, Blood 106 mg/dL (70-99); Potassium, Blood 3.9 mmol/L (3.5-5.5); Sodium, Blood 136 mmol/L (136-145); Total Protein, Blood 6.3 g/dL (6.4-8.2); Troponin I <0.015 ng/mL (0.000-0.040)
[2021-10-01] MEDS ORDERED: FINA5 PO (13:23)
[2021-10-01] MEDS ORDERED: ALBU90OI INH (19:50)
== END 2021-09-26 20:35 | disposition home or self-care (01) ==
LOC: ER 11:50
PROVIDERS: Emergency Medicine
DX: D64.9 Anemia, unspecified (principal); D69.6 Thrombocytopenia, unspecified; D61.818 Other pancytopenia; Z88.0 Allergy status to penicillin; Z79.899 Other long term (current) drug therapy; Z79.52 Long term (current) use of systemic steroids; G40.909 Epilepsy, unspecified, not intractable, without status epilepticus
CPT/HCPCS: 36415; 36430; 70450; 80053; 82947; 84484; 85025; 86850; 86900; 86901; 86923; 93005; 93010; 96374; 99285-25; J1953; J7030; J7512; P9016; P9035

== ENCOUNTER 2021-10-14 16:34 | Inpatient (IN) | payer OTHER ==
[~2021-10-14] VITALS: Ht 180.3 cm; Wt 64.9 kg
[~2021-10-14 16:34] MED LIST changes: +FLUDROCORTISON0.1 M1 PO; +PREDNISONE5 M1 PO; +VITAMIN D31000 UNI1 PO
[2021-10-14 17:26] LABS: BASOPHILS PERCENT AUTO 0 % (0-2); EOSINOPHILS ABSOLUTE AUTO 0.01 K/mm3 (0.00-0.68); EOSINOPHILS PERCENT AUTO 1 % (0-6); IMMATURE GRAN ABSOLUTE AUTO 0.02 K/mm3 (0.00-0.10); IMMATURE GRAN PERCENT AUTO 1 % (0-1); LYMPHOCYTES ABSOLUTE AUTO 0.64 K/mm3 (0.84-5.20); LYMPHOCYTES PERCENT AUTO 44 % (21-46); MONOCYTES PERCENT AUTO 7 % (4-13); Mean Corpuscular HGB 29.2 pg (26.0-34.0); Mean Corpuscular HGB Conc 33.6 g/dL (31.5-36.5); Mean Corpuscular Volume 87 fL (80-100); NEUTROPHILS ABSOLUTE AUTO 0.67 K/mm3 (1.96-9.15); NEUTROPHILS PERCENT AUTO 47 % (41-73); RDW Standard Deviation 41.1 fL (35.1-46.3); Red Blood Cell Count 1.71 M/mm3 (4.30-5.90); White Blood Cell Count 1.44 K/mm3 (4.00-11.30)
[2021-10-14 17:45] LABS: Alanine Aminotransfer (ALT/SGP 23 U/L (12-78); Albumin, Blood 2.7 g/dL (3.4-5.0); Albumin/Globulin Ratio 0.9 (0.8-1.8); Alk Phos 65 U/L (50-136); Anion Gap 6 mmol/L (6-16); Aspartate Aminotrans (AST/SGOT 11 U/L (12-37); Bilirubin, Total 0.8 mg/dL (0.1-1.0); Blood Urea Nitrogen 27 mg/dL (8-24); Bun/Creatinine Ratio 21.8 (12.0-20.0); CO2, Blood 24 mmol/L (21-32); Calcium, Blood 8.3 mg/dL (8.5-10.1); Chloride, Blood 110 mmol/L (98-108); Creatinine, Blood 1.24 mg/dL (0.60-1.20); Glomerular Filtration Rate 57 (60-); Glucose, Blood 113 mg/dL (70-99); Potassium, Blood 3.9 mmol/L (3.5-5.5); Sodium, Blood 140 mmol/L (136-145); Total Protein, Blood 5.7 g/dL (6.4-8.2); Troponin I <0.015 ng/mL (0.000-0.040)
[2021-10-14 17:59] LABS: Hematocrit 14.9 % (37.0-53.0); Platelet Count 0 K/mm3 (150-400)
[2021-10-14 18:12] LABS: Free Thyroxine 1.17 ng/dL (0.70-1.60)
[2021-10-14 18:14] LABS: Thyroid Stimulating Hormone 2.32 uIU/mL (0.360-4.800); Triiodothyronine, Free 2.21 pg/mL (2.18-3.98)
[2021-10-14 19:58] LABS: Influenza A, PCR NEGATIVE (NEGATIVE); Influenza B, PCR NEGATIVE (NEGATIVE); Resp Syncytial Virus, PCR NEGATIVE (NEGATIVE); SARS-Cov-2 (COVID-19) PCR, MMC NEGATIVE (NEGATIVE)
[2021-10-14] MEDS ORDERED: FLUDROCORTISON0.1 M2 PO (20:12)
[2021-10-14] MEDS ORDERED: DONEPEZIL HCL5 M2 PO (20:12)
[2021-10-14] MEDS ORDERED: LEVE500 PO (20:13)
[2021-10-14] MEDS ORDERED: Ventolin/Prove6.7 GM INH (20:13)
[2021-10-14] MEDS ORDERED: PRED5 PO (20:13)
[2021-10-14] MEDS ORDERED: QUETIAPINE FUMA25 MG PO (20:13)
--- NOTE | 2021-10-14 22:38 | NUR ---
REPORT RECIEVED FROM [place] AT 2225 AND AWAITING PT T/F TO ROOM 348.
--- NOTE | 2021-10-14 22:55 | NUR ---
TRANSFER: PT ARRIVED TO ROOM 348 VIA GURNEY AT 2250 W/ AT BEDSIDE. HE'S A/O TO SELF AND FAMILY BUT HAS LEWY BODY DEMENTIA W/FORGETFULLNESS AT BASELINE. HE'S PLEASANT AND COOPERATIVE W/CARE AND SPECIFIES SOME NEEDS BUT WILL REMAIN IN ROOM TO ASSIST W/CARE, REMINDERS AND DECISION MAKING. 1 UNIT PRBC'S BEING RECIEVED UPON ARRIVAL TO ROOM AND VSS. CAMERA MONITORING IN PLACE AND BED ALARM ON FOR FALL RISK. PT HAD MULTI SYNCOPAL EPISODES W/FALLS PRIOR TO ADMIT R/T PANCYTOPENIA, INCREASED WEAKNESS AND SEIZURE DISORDER. STRICT BEDREST IMPLEMENTED AND CALL LIGHT PROVIDED TO /PT. PLAN FOR 2ND UNIT PRBC'S AND WILL DISCUSS POSS NEED FOR RECHECK OF LABS AND TELEMETRY D/T SYMPTOMATIC BRADYCARDIA IN ER. PT TOLERATING TRANSFUSION W/O S/S DISTRESS. LS SLIGHTLY COARSE W/O DYSPNEA, SPO2 WNL ON RA. WCTM FOR CHANGES/WORSENING.
[2021-10-14] MEDS ORDERED: Acetaminophen650 M1 PO (22:59)
[2021-10-14] MEDS ORDERED: ATOR10 PO (22:59)
[2021-10-14] MEDS ORDERED: B-12 COMPL1000 MCG/2 IM (23:00)
[2021-10-14] MEDS ORDERED: Vitamin D1000 UNI1 PO (23:01)
--- NOTE | 2021-10-14 23:38 | NUR ---
CLARIFIED ORDERS W/: STAFF WANTED TO CLARIFY IF MD WANTED PLATELETS OR CBC RECHECKED. SHE OK'D THESE LABS BE DRAWN AT SCHEDULED AM LAB TIME AFTER ALL TRANSFUSIONS ARE RECIEVED. PLATELETS RECIEVED IN ER AND 1ST UNIT PRBC'S INFUSING UPON ARRIVAL TO ROOM 348. TRANSFUSION IS NEARLY FINISHED AND PT APPEARS TO HAVE TOLERATED IT W/O S/S DISTRESS OR ADVERSE REACTION. BP AND HR IMPROVING. 2ND UNIT PRBC'S TO BE STARTED MOMENTARILY. INSTRUCTED TO COMMENCE MAINTENANCE IVF UPON COMPLETION OF 2ND UNIT PRBC'S. TELEMETRY RX'D FOR SYMPTOMATIC BRADYCARDIA IN ER AND SEIZURE PRECAUTIONS IN PLACE.
--- NOTE | 2021-10-15 | NUR ---
1ST UNIT PRBC'S COMPLETED AT 2357 AND PT TOLERATED IT W/O S/S ADVERSE REACTION. LS REMAIN SLIGHTLY COARSE TO BASES BUT THIS WAS HEARD UPON T/F AND ADMIT TO ROOM 348. NO S/S RESP DISTESS OBSERVED AND SPO2 IS WNL ON RA. VSS/AFEBRILE.
--- NOTE | 2021-10-15 00:14 | NUR ---
2ND UNIT PRBC'S VERIFIED W/2ND RN (MARIYA TO) AND PT & AWARE OF S/S SYMPTOMS ADVERSE REACTION. LS SLIGHTLY COARSE TO BILAT BASES BUT PT WAS ABLE TO COUGH AND CLEAR SECRETIONS FOR SOME IMPROVEMENT. VSS/AFEBRILE AND PRBC'S COMMENCED AT 0005. THEY'RE AWARE TO ALERT STAFF OF ANY CHANGES OR IF HE BECOMES SYMPTOMATIC OF DISTRESS.
--- NOTE | 2021-10-15 00:35 | NUR ---
TELEMETRY COMMENCED. PT IS NSR AT 65 BPM. LS REMAIN SLIGHTLY COARSE BUT PT APPEARS TO BE TOLERATING 2ND UNIT PRBC'S W/O S/S REACTION. BP ELEVATED FROM PREVIOUS BUT PT DENIES ALL COMPLAINTS CARDIAC DISTRESS AND HAS HYPERTENSION AT BASELINE. WCTM CLOSELY AND ALERT MD IF PT BECOMES SYMPTOMATIC OR FLUID OVERLOAD SEEMES EVIDENT.
--- NOTE | 2021-10-15 03:05 | NUR ---
2ND UNIT PRBC'S COMPLETED W/O ADVERSE REACTION, VSS/AFEBRILE. PT SLEEPING W/ AT BEDSIDE.
[2021-10-15 04:45] LABS: BASOPHILS PERCENT AUTO 0 % (0-2); EOSINOPHILS ABSOLUTE AUTO 0.01 K/mm3 (0.00-0.68); EOSINOPHILS PERCENT AUTO 0 % (0-6); Hematocrit 20.3 % (37.0-53.0); IMMATURE GRAN PERCENT AUTO 0 % (0-1); LYMPHOCYTES PERCENT AUTO 58 % (21-46); MONOCYTES ABSOLUTE AUTO 0.15 K/mm3 (0.16-1.47); MONOCYTES PERCENT AUTO 7 % (4-13); Mean Corpuscular HGB 30.7 pg (26.0-34.0); Mean Corpuscular HGB Conc 34.5 g/dL (31.5-36.5); Mean Corpuscular Volume 89 fL (80-100); Mean Platelet Volume 10.1 fL (9.1-12.4); NEUTROPHILS PERCENT AUTO 36 % (41-73); RDW Coefficient Variation 13.2 % (11.7-14.2); RDW Standard Deviation 42.5 fL (35.1-46.3); Red Blood Cell Count 2.28 M/mm3 (4.30-5.90); White Blood Cell Count 2.26 K/mm3 (4.00-11.30)
--- NOTE | 2021-10-15 04:50 | NUR ---
NS COMMENCED AFTER COMPLETION OF TRANSFUSIONS AND LAB DRAW PER INSTRUCTION. BP REMAINS SLIGHLY ELEVATED THOUGH PT IS ASYMPTOMATIC OF DISTRESS AND LS ARE IMPROVED. PT HEARD COUGHING TO CLEAR SECRETIONS AND LS NOW SOUND CLEAR T/O W/SPO2 REMAINING 100% ON RA.
[2021-10-15 04:54] LABS: Platelet Count 24 K/mm3 (150-400)
--- NOTE | 2021-10-15 05:21 | NUR ---
CRITICAL PLATELET, NOW 24 (WAS 0). HGB/HCT IMPROVED TOO, NOW 7.0/20.3 (WAS 5.0/14.9). CARMELA TAMEZ (EVA TORRES) AWARE AND PLAN TO ALERT MD MOMENTARILY.
[2021-10-15 05:33] LABS: Anion Gap 7 mmol/L (6-16); Blood Urea Nitrogen 28 mg/dL (8-24); Bun/Creatinine Ratio 24.6 (12.0-20.0); CO2, Blood 24 mmol/L (21-32); Calcium, Blood 8.1 mg/dL (8.5-10.1); Chloride, Blood 110 mmol/L (98-108); Creatinine, Blood 1.14 mg/dL (0.60-1.20); Glomerular Filtration Rate >60 (60-); Glucose, Blood 101 mg/dL (70-99); Sodium, Blood 141 mmol/L (136-145)
--- NOTE | 2021-10-15 05:55 | NUR ---
MADE AWARE OF CRITICAL PLATELETS TRENDING IN RIGHT DIRECTION, AM CBC RESULTS AND FLUCTUATING BP'S THAT HAVE TRENDED UPWARD SINCE RECEIVING BLOOD PRODUCTS. NO NEW ORDERS RECIEVED AT THIS TIME BUT MD INSTRUCTED TO WATCH BP AND REEVALUATE IN 30 MINS-1 HOUR.
--- NOTE | 2021-10-15 06:08 | NUR ---
SUMMARY: PT ORIENTED TO SELF/FAMILY, SURROUNDINGS AND IS ABLE TO SPECIFY MOST NEEDS. DEMENTIA AT BASELINE SO HE'S FORGETFULL AND IMPULSIVE AT TIMES. CAMERA MONITORING IN PLACE, BED ALARM ON AND AT BEDSIDE FOR RECENT SYNCOPE/FALLS AT HOME, INCREASED WEAKNESS, SEIZURE DISORDER AND PANCYTOPENIA. PT RECIEVED PLATELETS IN ER W/2 UNITS PRBC'S TRANSFUSED T/O NOCTE. HGB/HCT IMPROVING, NOW (7.0/20.3) AND CRITICAL PLATELETS (24.0) TRENDING UPWARD. MD AWARE OF AM LABS W/NO NEW ORDERS RECIEVED. VSS BUT BP HAS SLIGHTLY TRENDED UPWARD UPON RECIEVING BLOOD PRODUCTS. MD INSTRUCTED TO MONITOR CLOSELY AND RECHECK AROUND 0700. PT W/O S/S CARDIAC DISTRESS AND HAS HX HTN W/NO EVIDENCE FLUID OVERLOAD. LS BEGAN COARSE BUT PT OCCASIONALLY COUGHS TO CLEAR SECRETIONS, LS NOW CLEAR T/O W/SPO2 100% ON RA. DARRION HOSE INTACT AND NO EDEMA OBSERVED. PT CONT/INCONT W/ATTENDS CHANGED PRN AND USED URINAL AT EOB W/ASSIST. HE'S ON STRICT BEDREST D/T SYMPTOMATIC BRADYCARDIA UPON STANDING IN ER. TELEMETRY INTACT: NSR AT 60'S BPM. NS INFUSES AT 100ML/HR. SCATTERED BRUISES OBSERVED FROM FALLING BUT PT DENIES PAIN AND ALL OTHER COMPLAINTS. NO ACUTE CHANGES. WCTM/REPORT TO DAY RN.
--- NOTE | 2021-10-15 18:13 | NUR ---
SHIFT SUMMARY FINISHED x 1 L IVF, WORKED w/ THERAPY, THEN RECEIVED 1 UNIT PRBC. PLEASANTLY CONFUSED & FOLLOWS DIRECTIONS. EATING, DRINKING, & VOIDING.
--- NOTE | 2021-10-15 23:53 | NUR ---
PT HAS BEEN VERY IMPULSIVE WHEN HE NEEDS TO URINATE, BED ALARM ON FOR PT SAFETY. IN ROOM, SUPPORTIVE. BED IN LOW POSITION. FLUIDS AT BEDSIDE. CALL LIGHT WITHIN REACH. URINE IS CLEAR YELLOW IN COLOR.
--- NOTE | 2021-10-16 04:27 | NUR ---
SHIFT SUMMARY - NO ACUTE CHANGES THROUGHOUT THIS SHIFT. HAS BEEN PRESENT, SLEEPING, AND ASSISTING WITH PT CARE. SHE REPORTS THEY HAVE BEEN FOR 49 YEARS. PT HAS BEEN IMPULSIVE WHEN HE NEEDS TO URINATE - BED ALARM ON FOR PT SAFETY. PT REPORTS FEELING "LIGHTHEADED" WHEN STANDING AT BEDSIDE WITH THE LAST DOCUMENTED URINATION. PT WAS A 2 PERSON ASSIST, WITH WALKER AT THE BEDSIDE FOR URINATION. PT HAS BEEN SLEEPING THROUGHOUT MOST OF THE NIGHT. JENNIE. PO FLUIDS AT BEDSIDE. CALL LIGHT WITHIN REACH. WILL CONTINUE TO MONITOR UNTIL AM SHIFT CHANGE.
[2021-10-16 05:18] LABS: Hematocrit 19.1 % (37.0-53.0); Hemoglobin 6.6 g/dL (13.5-17.5); Mean Corpuscular HGB 30.4 pg (26.0-34.0); Mean Corpuscular HGB Conc 34.6 g/dL (31.5-36.5); Mean Corpuscular Volume 88 fL (80-100); Mean Platelet Volume 10.7 fL (9.1-12.4); RDW Coefficient Variation 13.2 % (11.7-14.2); Red Blood Cell Count 2.17 M/mm3 (4.30-5.90); White Blood Cell Count 1.77 K/mm3 (4.00-11.30)
[2021-10-16 05:28] LABS: Platelet Count 14 K/mm3 (150-400)
[2021-10-16 05:51] LABS: Anion Gap 6 mmol/L (6-16); Blood Urea Nitrogen 28 mg/dL (8-24); Bun/Creatinine Ratio 26.4 (12.0-20.0); CO2, Blood 24 mmol/L (21-32); Chloride, Blood 110 mmol/L (98-108); Creatinine, Blood 1.06 mg/dL (0.60-1.20); Glomerular Filtration Rate >60 (60-); Glucose, Blood 94 mg/dL (70-99); Potassium, Blood 3.5 mmol/L (3.5-5.5); Sodium, Blood 140 mmol/L (136-145)
--- NOTE | 2021-10-16 06:41 | NUR ---
PT'S LS ARE COARSE THROUGHOUT. PT STOOD FOR URINATION, AND PT HAD A STRONG COUGH, HOWEVER LS ARE STILL COARSE THROUGHOUT - WILL REPORT THIS OFF TO ONCOMING SHIFT. 1U PRBC'S INFUSING AT THIS TIME.
[2021-10-16 11:47] LABS: Hematocrit 22.1 % (37.0-53.0); Hemoglobin 7.8 g/dL (13.5-17.5)
--- NOTE | 2021-10-16 17:27 | NUR ---
SHIFT SUMMARY: S/P TRANSFUSION OF 1 UNIT PRBC'S, WELL TOLERATED; POST TRANSFUSION H/H 7.8. HAS BEEN SLEEPY TODAY, AROUSES TO SPEECH, IS SLOW TO RESPOND TO QUESTIONS SO WADE USUALLY ANSWERS FOR HIM. NO EVENTS ON TELEMETRY, SR 60'S. LUNG SOUNDS WITH COARSE CRACKLES IN RML AND LLL; ONE TIME DOSE OF LASIX GIVEN. PLACED ON NEUTROPENIC PRECAUTIONS. DENIED PAIN. USING URINAL WITH ASSISTANCE. AT BEDSIDE ENTIRE SHIFT.
--- NOTE | 2021-10-17 05:42 | NUR ---
SHIFT SUMMARY A/O TO SELF AND FAMILY. IMPULSIVE AT TIMES. 1 ASSIST WITH FWW, AT BEDSIDE TO HELP WITH PT CARE. DIM CRACKLES NOTED T/O. VSS, NO ACUTE CHANGES AT THIS TIME. BED IN LOWEST POSITION WITH CALL LIGHT IN REACH. WILL CONTINUE TO MONITOR AND REPORT TO ONCOMING RN.
[2021-10-17 08:23] LABS: Hematocrit 22.7 % (37.0-53.0); Hemoglobin 7.9 g/dL (13.5-17.5); Mean Corpuscular HGB 29.8 pg (26.0-34.0); Mean Corpuscular HGB Conc 34.8 g/dL (31.5-36.5); Mean Corpuscular Volume 86 fL (80-100); Mean Platelet Volume 10.2 fL (9.1-12.4); RDW Coefficient Variation 14.2 % (11.7-14.2); RDW Standard Deviation 44.5 fL (35.1-46.3); Red Blood Cell Count 2.65 M/mm3 (4.30-5.90)
[2021-10-17 08:33] LABS: Platelet Count 8 K/mm3 (150-400)
--- NOTE | 2021-10-17 15:41 | NUR ---
Pt resting in bed upon arrival. Pt's spouse Marry at bedside. Offered therapeutic listening as Marry reports Pt has had 2 bone marrow biopsies both reulting inconclusive for reason of continued pancytopenia. Listened as Marry reports Pt still functioning well with his Lewy Body Dementia. Continued therapeutic listening. Marry expresses appreciation and reports no other concerns at this time. Spoke with Primary RN Nieves and discussed case. Palliative Care will remain available.
--- NOTE | 2021-10-17 18:35 | NUR ---
SHIFT SUMMARY: NO ACUTE EVENTS. PLATELET COUNT 8 THIS MORNING; 1 PLATELET PHERESIS GIVEN, TOLERATED WELL. TMAX 100.3, TYLENOL GIVEN, TEMP DECREASED TO 98.5. NO EVENTS ON TELEMETRY, SR 66, NO ECTOPY. BREATH SOUNDS CLEARER THAN YESTERDAY. USING URINAL WITH ASSISTANCE. AT BEDSIDE PATIENT IS IMPULSIVE AND HIGH FALL RISK. NO S/S OF BLEEDING.
--- NOTE | 2021-10-17 22:59 | NUR ---
TELEMETRY VERIFIED WITH TELETECH BRADYCARDIA AT HR OF 59.
--- NOTE | 2021-10-18 02:38 | NUR ---
PT IS ALERT AND ORIENTED. HAS GENERALIZED WEAKNESS. AMBULATES TO THE BEDSIDE COMMODE WITH ONE PERSON ASSIST. NO COMPLAINS OF PAIN. NO SIGNS OF DISTRESS. PATIENT IS SLEEPING ON BED IN LOWEST POSITION. CALL LIGHT WITHIN REACH.
[2021-10-18 05:43] LABS: Hematocrit 21.7 % (37.0-53.0); Hemoglobin 7.5 g/dL (13.5-17.5); Mean Corpuscular HGB 29.8 pg (26.0-34.0); Mean Corpuscular HGB Conc 34.6 g/dL (31.5-36.5); Mean Corpuscular Volume 86 fL (80-100); Mean Platelet Volume 9.5 fL (9.1-12.4); RDW Coefficient Variation 14.1 % (11.7-14.2); RDW Standard Deviation 44.4 fL (35.1-46.3); Red Blood Cell Count 2.52 M/mm3 (4.30-5.90); White Blood Cell Count 1.61 K/mm3 (4.00-11.30)
[2021-10-18 05:48] LABS: Platelet Count 27 K/mm3 (150-400)
--- NOTE | 2021-10-18 14:57 | NUR ---
PATIENT DISCHARGED AT 1456.
--- NOTE | 2021-10-19 12:15 | NUR ---
Received referral from nurse critical care specialist (Leann Archibald) on 10/18/2021. Patient discharged with orders for home health and elected [facility]. Patient was readmitted to [facility] on 10/14/2021 due to pancytopenia. [facility]. However, [facility] will not resume patient due to patient requiring a higher level of care. Review of patient's records by [facility] cloth folder hand (Ita Morrell) indicates that despite patient being on services with a home health agency, admissions and/or emergency visits at [facility] have not been able to prevented. [facility] is in agreement with patient's previous home health agency that patient requires a higher level of care that home health is unable to provide. No further interventions [facility] Referral Liaison
== END 2021-10-18 14:55 | disposition home health service (06) | DRG 809 ==
LOC: ER 16:34 → MEDS 22:30
PROVIDERS: Emergency Medicine; Internal Medicine; Student in an Organized Health Care Education/Training Program; ADMIT Hospitalist
PROC: 30233N1 Transfusion of Nonautologous Red Blood Cells into Peripheral Vein, Percutaneous Approach (ICD-10-PCS; principal; 2021-10-14)
PROC: 30233K1 Transfusion of Nonautologous Frozen Plasma into Peripheral Vein, Percutaneous Approach (ICD-10-PCS; 2021-10-14)
DX: D61.818 Other pancytopenia (principal); N17.9 Acute kidney failure, unspecified; E27.40 Unspecified adrenocortical insufficiency; I10 Essential (primary) hypertension; G31.83 Neurocognitive disorder with Lewy bodies; Z20.822 Contact with and (suspected) exposure to COVID-19; I95.1 Orthostatic hypotension; F02.80 Dementia in other diseases classified elsewhere, unspecified severity, without behavioral disturbance, psychotic disturbance, mood disturbance, and anxiety; N40.0 Benign prostatic hyperplasia without lower urinary tract symptoms; E78.00 Pure hypercholesterolemia, unspecified; G40.909 Epilepsy, unspecified, not intractable, without status epilepticus; Z87.891 Personal history of nicotine dependence; Z98.890 Other specified postprocedural states; Z88.0 Allergy status to penicillin; Z79.52 Long term (current) use of systemic steroids; Z79.899 Other long term (current) drug therapy
CPT/HCPCS: 0241U; 36415; 36430; 70450; 71045; 72125; 80048; 80053; 80177; 83735; 83880; 84146; 84439; 84443; 84481; 84484; 85014; 85018; 85025; 85027; 86850; 86900; 86901; 86923; 93005; 93010; 96374; 97116; 97161; 97530; 99285-25; A9270; J1940; J1953; J7030; J7050; J7512; P9016; P9035

== ENCOUNTER 2021-10-25 02:11 | Day surgery (SDC) | payer OTHER ==
[~2021-10-25 02:11] MED LIST changes: +ATOR10 PO; +B-12 COMPL1000 MCG/2 IM; +DONEPEZIL HCL5 M2 PO; +FLUDROCORTISON0.1 M2 PO; +PRED5 PO; +QUETIAPINE FUMA25 MG PO; +Ventolin/Prove6.7 GM INH; +Vitamin D1000 UNI1 PO
== END 2021-10-28 03:37 | disposition home or self-care (01) ==
LOC: ATC 02:11
DX: D69.6 Thrombocytopenia, unspecified (principal); I49.8 Other specified cardiac arrhythmias; I10 Essential (primary) hypertension; G40.909 Epilepsy, unspecified, not intractable, without status epilepticus; G31.83 Neurocognitive disorder with Lewy bodies; F02.80 Dementia in other diseases classified elsewhere, unspecified severity, without behavioral disturbance, psychotic disturbance, mood disturbance, and anxiety; Z87.891 Personal history of nicotine dependence
CPT/HCPCS: 36430; 86900; 86901; J7050; P9035

== ENCOUNTER 2021-11-16 12:04 | Inpatient (IN) | payer OTHER ==
[~2021-11-16] VITALS: Ht 167.6 cm; Wt 64.7 kg
[2021-11-16 12:45] LABS: Mean Corpuscular HGB 29.9 pg (26.0-34.0); Mean Corpuscular HGB Conc 35.3 g/dL (31.5-36.5); Mean Corpuscular Volume 85 fL (80-100); NRBC ABSOLUTE 0.02 K/mm3 (0.00-0.02); NRBC Auto 1.1 /100 WBC (0.0-0.2); RDW Coefficient Variation 12.5 % (11.7-14.2); RDW Standard Deviation 38.5 fL (35.1-46.3); Red Blood Cell Count 1.77 M/mm3 (4.30-5.90); White Blood Cell Count 1.75 K/mm3 (4.00-11.30)
[2021-11-16 12:47] LABS: Mean Platelet Volume 13.2 fL (9.1-12.4)
[2021-11-16 12:49] LABS: Hemoglobin 5.3 g/dL (13.5-17.5)
[2021-11-16 12:53] LABS: Bun/Creatinine Ratio 18.9 (12.0-20.0); Calcium, Blood 8.6 mg/dL (8.5-10.1); Creatinine, Blood 1.32 mg/dL (0.60-1.20); Globulin, Blood 3.1 g/dL (2.2-4.0); Potassium, Blood 4.4 mmol/L (3.5-5.5); Total Protein, Blood 6.1 g/dL (6.4-8.2)
[2021-11-16 13:02] LABS: Source, Urine Straight Cath
[2021-11-16 13:05] LABS: BAND PERCENT MAN 6 % (0-8); BASOPHILS PERCENT MAN 0 % (0-2); EOSINOPHILS PERCENT MAN 0 % (0-6); LYMPHOCYTES ABSOLUTE MAN 0.82 K/mm3 (0.84-5.20); LYMPHOCYTES PERCENT MAN 47 % (21-46); MONOCYTES ABSOLUTE MAN 0.12 K/mm3 (0.16-1.47); MONOCYTES PERCENT MAN 7 % (4-13); SEG NEUTROPHILS PERCENT MAN 40 % (41-73); TOTAL CELLS COUNTED 100
[2021-11-16 13:08] LABS: Bilirubin, Urine Neg (Neg); Blood, Urine 2+ (Neg); Glucose Qualitative, Urine Neg (Neg); Ketones, Urine Neg (Neg); Leukocyte Esterase, Urine Neg (Neg); Nitrite, Urine Neg (Neg); Protein, Urine 1+ (Neg); Urobilinogen, Urine NORM (Normal); pH, Urine 6.5 (5.0-8.0)
[2021-11-16 13:19] LABS: Platelet Count 1 K/mm3 (150-400)
[2021-11-16 13:48] LABS: Appearance, Urine Cloudy (Clear); Color, Urine Pale Yellow (P-Yellow)
[2021-11-16 13:50] LABS: Bacteria Mod /hpf; Mucus Mod (0-Heavy); Squamous Epithelial Cells Few /hpf (Few); White Blood Cells, Urine 0-2 /hpf (0-5)
[2021-11-16 13:59] LABS: International Normalized Ratio 1.11; Prothrombin Time Results 11.6 Sec (9.7-11.5)
[2021-11-16 21:04] LABS: Hematocrit 19.3 % (37.0-53.0); Hemoglobin 6.8 g/dL (13.5-17.5); Mean Corpuscular HGB 30.5 pg (26.0-34.0); Mean Corpuscular HGB Conc 35.2 g/dL (31.5-36.5); Mean Corpuscular Volume 87 fL (80-100); Mean Platelet Volume 9.6 fL (9.1-12.4); RDW Coefficient Variation 12.9 % (11.7-14.2); RDW Standard Deviation 40.9 fL (35.1-46.3); Red Blood Cell Count 2.23 M/mm3 (4.30-5.90); White Blood Cell Count 1.25 K/mm3 (4.00-11.30)
[2021-11-16 21:08] LABS: Platelet Count 39 K/mm3 (150-400)
--- NOTE | 2021-11-16 23:28 | NUR ---
ASSUMED PT CARE AT 2100 FROM ED PT ALERT AND ORIENTED TO SELF, , AND TOWN. HX OF DEMENTIA. DOESN'T SPEAK FULL SENTENCES, BUT RESPONDS WITH SHORT, ONE-WORDED, ANSWERS. BECOMES IRRITABLE AND AGITATED EASILY, ESPECIALLY WHEN COLD. ADMITTED SECONDARY TO SUBARACHNOID HEMORRHAGE. PUPILS EQUAL, ROUND, AND REACTIVE TO LIGHT; 3MM. PT DENIES HEADACHE AT THIS TIME. MOVES ALL EXTREMITIES EQUALLY. PT HAS RECEIVED 1 UNITS OF PLATLETS, AND CURRENTLY RECEIVING HIS 3RD UNIT OF PRBC'S D/T A HGB OF 6.8 AFTER TWO UNITS HAD ALREADY BEEN INFUSED. POWERGLIDE PLACED TO LEFT UPPER ARM. PT HAS BEEN HYPERTENSIVE SINCE BEING ON THE UNIT WITH SYSTOLIC PRESSURES ANYWHERE FROM 160-210'S; STATES PT HAS VERY LABILE PRESSURES AT BASELINE. IS PT'S SUPPORT PERSON AND ALLOWED TO STAY OVER AT THIS TIME; SHE IS VERY HELPFUL AND COOPERATIVE WITH CARES. WILL CONTINUE TO MONITOR; SEE SHIFT SUMMARY FOR FURTHER DETAILS.
[2021-11-17 03:15] LABS: Hematocrit 21.1 % (37.0-53.0); Hemoglobin 7.5 g/dL (13.5-17.5); Mean Corpuscular HGB 30.9 pg (26.0-34.0); Mean Corpuscular HGB Conc 35.5 g/dL (31.5-36.5); Mean Corpuscular Volume 87 fL (80-100); Mean Platelet Volume 9.6 fL (9.1-12.4); RDW Coefficient Variation 12.5 % (11.7-14.2); Red Blood Cell Count 2.43 M/mm3 (4.30-5.90); White Blood Cell Count 1.32 K/mm3 (4.00-11.30)
[2021-11-17 03:16] LABS: Platelet Count 32 K/mm3 (150-400)
[2021-11-17 03:29] LABS: Bun/Creatinine Ratio 26.1 (12.0-20.0); Calcium, Blood 8.2 mg/dL (8.5-10.1); Creatinine, Blood 1.19 mg/dL (0.60-1.20); Potassium, Blood 3.9 mmol/L (3.5-5.5)
--- NOTE | 2021-11-17 06:10 | NUR ---
END OF SHIFT SUMMARY NEURO ASSESSMENTS REMAIN UNCHANGED. PT REMAINS ALERT TO SELF, , AND TOWN. COMMUNICATION REMAINS THE SAME WITH WITH SIMPLE ONE-WORDED RESPONSES. PT HAD ONE INCONTINENT VOID AND ONE CONTINENT VOID. AT BEDSIDE TO ASSIST WITH PT'S NEEDS. HE REMAINS SALINE LOCKED AT THIS TIME. WILL CONTINUE TO MONITOR UNTIL REPORT IS HANDED OFF TO ONCOMING RN.
--- NOTE | 2021-11-17 07:00 | NUR ---
Placed call to Dr. Posada regarding hypertension, voicemail left. Awaiting call back
--- NOTE | 2021-11-17 07:59 | NUR ---
ASSUMPTION OF CARE PT IS SLEEPY THIS MORNING AND NOT ENTIRELY COOPERATIVE WITH COMMANDS. RESPONDS WHEN ASKED TO WIGGLE HIS TOES, BUT DOES NOTHING WHEN ASKED TO SQUEEZE HANDS. DOES SHOW PURPOSEFUL MOVEMENT OF UPPER EXTREMITIES. AT BEDSIDE STATES PT IS USUALLY TIRED LIKE THIS IN THE MORNING. ROOM AIR. TREATED FOR HYPERTENSION WITH 5MG METOPROLOL, SEE EMAR. ORIENTED TO SELF AND CITY. LUNGS CLEAR, ROOM AIR.
[2021-11-17 17:35] LABS: Source, Urine Clean Catch
[2021-11-17 17:47] LABS: Appearance, Urine Clear (Clear); Bilirubin, Urine Neg (Neg); Blood, Urine 5+ (Neg); Color, Urine Yellow (P-Yellow); Glucose Qualitative, Urine Neg (Neg); Ketones, Urine Neg (Neg); Leukocyte Esterase, Urine Neg (Neg); Nitrite, Urine Neg (Neg); Protein, Urine 1+ (Neg); Urobilinogen, Urine 1+ (Normal)
[2021-11-17 17:56] LABS: Bacteria Many /hpf; Squamous Epithelial Cells Few /hpf (Few); White Blood Cells, Urine 0-2 /hpf (0-5)
[2021-11-17 17:57] LABS: Amorphous Light (0-Heavy); Mucus Mod (0-Heavy)
--- NOTE | 2021-11-17 18:34 | NUR ---
SHIFT SUMMARY. NO NEURO CHANGES THIS SHIFT. CT COMPLETED THIS MORNING D/T CONCERNS OF DROWSINESS. PT REMAINS SLEEPY BUT IS ABLE TO WAKE TO COMPLETE ADLS. ORIENTED TO SELF AND PLACE. FOLLOWS COMMANDS BUT IS OFTEN NOT COOPERATIVE WITH CARE. MOVES ALL EXTREMITIES. LUNGS CLEAR. ROOM AIR. HYPERTENSIVE. MD CALLED MULTIPLE TIMES FOR NEW ORDERS, SEE EMAR FOR TREATMENTS. SB-SR 50S-70S. MILD FEVER THIS AFTEROON. TREATED WITH TYELENOL. NEW UA AND BLOOD CULTURES SENT. POOR APPETITE BUT SWALLOWS APPROPRIATELY. MEDS GIVEN CRUSHED IN PUDDING. INCONTINENT OF URINE AT TIMES. AT BEDSIDE TODAY
--- NOTE | 2021-11-17 20:55 | NUR ---
ASSUMED CARE PT IS RESTING IN BED WITH AT BEDSIDE. PT HAS DEMETIA AT BASELINE. HE IS SLEEPING, BUT AROUSES TO HIS NAME. HE IS SELECTIVE WITH FOLLOWING COMMANDS, AND UNCOOPERATIVE AT TIMES. RESISTANT TO OPENING EYES TO VIEW PUPILS. MEDICATIONS ARE GIVEN WITH PUDDING AND HE CHEWS THEM. HIS STATES HE STARTED CHEWING HIS PILLS AT HOME A COUPLE OF DAYS PRIOR TO ADMISSION AND IS OTHERWISE NOT NORMAL FOR HIM. ON ROOM AIR, HIS SPO2 IS >96%, LUNGS CLEAR. HR IS SINUS RHYTHM, BP HYPERTENSIVE WITH SBP IN 170'S, PO HYDRALAZINE GIVEN. USING URINAL WITH HELP OF OR INCONTINENT IN BRIEFS. PT HAS MULTIPLE BRUISES T/O BODY AND PETECHAIE, LIKELY R/T LOW PLATELET COUNT. ORDERS REVIEWED, WILL TREAT PRESCRIBED.
--- NOTE | 2021-11-17 22:33 | NUR ---
PT IS PICKING AT MONITOR LEADS AND SPO2 PROBE. SPO2 PROBE REMOVED HE IS ON ROOM AIR WITH SATS IN UPPER 90'S. LORENA VEST PLACED TO DETER PT FROM REMOVING LEADS, BUT IT IS NOT TIED DOWN. BED ALARM SET.
[2021-11-18 04:34] LABS: Hematocrit 20.4 % (37.0-53.0); Hemoglobin 7.3 g/dL (13.5-17.5); Mean Corpuscular HGB 30.5 pg (26.0-34.0); Mean Corpuscular HGB Conc 35.8 g/dL (31.5-36.5); Mean Corpuscular Volume 85 fL (80-100); Mean Platelet Volume 9.7 fL (9.1-12.4); RDW Coefficient Variation 12.4 % (11.7-14.2); Red Blood Cell Count 2.39 M/mm3 (4.30-5.90); White Blood Cell Count 1.26 K/mm3 (4.00-11.30)
[2021-11-18 04:38] LABS: Platelet Count 21 K/mm3 (150-400)
[2021-11-18 04:58] LABS: Anion Gap 6 mmol/L (6-16); Blood Urea Nitrogen 27 mg/dL (8-24); Bun/Creatinine Ratio 29.3 (12.0-20.0); CO2, Blood 25 mmol/L (21-32); Calcium, Blood 8.6 mg/dL (8.5-10.1); Chloride, Blood 105 mmol/L (98-108); Creatinine, Blood 0.92 mg/dL (0.60-1.20); Glomerular Filtration Rate >60 (60-); Glucose, Blood 114 mg/dL (70-99); Phosphorus, Blood 3.1 mg/dL (2.5-4.9); Potassium, Blood 3.8 mmol/L (3.5-5.5); Sodium, Blood 136 mmol/L (136-145)
--- NOTE | 2021-11-18 05:44 | NUR ---
PT SLEPT OFF AND ON T/O SHIFT. ALERT AND ORIENTED TO SELF AND ONLY. UNSURE OF WHAT TOWN OR WHERE HE IS AT AND BELIEVED TO BE AT HOME OFTEN. CONTINUED TO REORIENT. HE WAS RESISTANT TO CARE, BUT EVENTUALLY WAS ABLE TO FOLLOW COMMANDS. HE PULLED ECG LEADS OFF MULTIPLE TIMES T/O THE NIGHT AND HAD TO BE REMINDED OFTEN TO LEAVE ON. LORENA VEST REMOVED AND REPLACED WITH GOWN THIS AM. VSS WITH EXCEPTION OF BLOOD PRESSURE REMAINING ELEVATED, DESPITE METOPROLOL GIVEN. PT FULLY SOAKED ATTENDS AND BEDDING, FULL LINEN CHANGE DONE. HE REMAINED FEBRILE WITH TMAX OF 99.5. WILL REPORT TO ONCOMING SHIFT.
--- NOTE | 2021-11-18 19:11 | NUR ---
NO NEURO CHANGES THIS SHIFT. ORIENTED TO SELF. OFTEN RESISTIVE TO CARE. MOVES ALL EXTREMITIES. ROOM AIR. SR - SINUS ARRYTHMIA OFF AND ON THROUGHOUT THE DAY, MD NOTIFIED. INCONTINENT OF URINE TODAY. NO BM. NO SKIN CHANGES. FEVER TREATED WITH TYELENOL X1. AT BEDISDE TODAY.
--- NOTE | 2021-11-18 21:17 | NUR ---
ASSUMED CARE/SHIFT SUMMARY. PT RESTING IN BED, AT BEDSIDE. ON ROOM AIR, STABLE VS, NO ACUTE NEEDS. ELVA MARS. PT TRANSFERRED TO MEDICAL FLOOR AT 2100 W/ ACCOMPANYING. REPORT GIVEN TO MEDICAL FLOOR RN.
[2021-11-19 06:10] LABS: Hematocrit 20.2 % (37.0-53.0); Hemoglobin 7.2 g/dL (13.5-17.5); Mean Corpuscular HGB 30.5 pg (26.0-34.0); Mean Corpuscular HGB Conc 35.6 g/dL (31.5-36.5); Mean Corpuscular Volume 86 fL (80-100); RDW Coefficient Variation 12.5 % (11.7-14.2); RDW Standard Deviation 38.9 fL (35.1-46.3); Red Blood Cell Count 2.36 M/mm3 (4.30-5.90); White Blood Cell Count 1.06 K/mm3 (4.00-11.30)
--- NOTE | 2021-11-19 06:10 | NUR ---
SHIFT SUMMARY: PATIENT TRANSFERED FROM ICU IN STABLE CONDITION, AT BEDSIDE. NO NEURO CHANGES THROUGH SHIFT. PATIENT IS FATIGUED. NOTED PETECHIAE THROUGHOUT AND ECCHYMOSIS TO BLE. BASELINE DEMENTIA. WCTM.
[2021-11-19 06:15] LABS: Albumin, Blood 2.8 g/dL (3.4-5.0); Anion Gap 5 mmol/L (6-16); Blood Urea Nitrogen 30 mg/dL (8-24); Bun/Creatinine Ratio 29.1 (12.0-20.0); CO2, Blood 26 mmol/L (21-32); Calcium, Blood 8.4 mg/dL (8.5-10.1); Chloride, Blood 106 mmol/L (98-108); Creatinine, Blood 1.03 mg/dL (0.60-1.20); Glomerular Filtration Rate >60 (60-); Glucose, Blood 102 mg/dL (70-99); Phosphorus, Blood 3.5 mg/dL (2.5-4.9); Sodium, Blood 137 mmol/L (136-145)
[2021-11-19 06:40] LABS: Platelet Count 14 K/mm3 (150-400)
--- NOTE | 2021-11-19 07:35 | NUR ---
ASSUMED CARE OF PT- BEDSIDE REPORT COMPLETED WITH NIGHT RN. PER REPORT PT PLATELET CT WAS CL AT 14. REVIEWED LABS. CALLED DR CORRAL HE IS AWARE AND WILL PLACE ORDERS. ON MORNING VITALS THE PT HANDED STAFF HIS POWERGLIDE THAT HE HAD REMOVED HIMSELF, IT WAS NO LONGER BLEEDING AT THIS TIME, FULL LINNEN AND GOWN CHANGE PERFORMED. PT SPOUSE AT THE BEDSIDE, BED ALARM FOR SAFETY. RN ASSISTING THE PT TO USE THE URINAL AT THIS TIME. PER REPORT MEDS TO BE CRUSHED IN APPLESAUCE, WILL ADMINISTER ALL ORAL MEDS THIS WAY. SPOKE TO DUST HANDLER ABOUT THE NEED FOR NEW PG SHE IS AWARE.
--- NOTE | 2021-11-19 10:25 | NUR ---
called by physician to meet with pt and . pt placed on comfort care met with career development facilitator plan is [facility] at pt daughters home.
--- NOTE | 2021-11-19 11:00 | NUR ---
WAS VERBAL THIS MORNING WHEN HIS WAS HERE, BUT NOT TALKING IN RESPONSE TO QUESTIONS NOW WITH HIS AWAY FROM THE ROOM. DAPER IN PLACE, CHECKED AND DRY. PT LYING ON HIS BACK NOW. NOT ANSWERING QUESTION ABOUT IF HE HAS ANY PAIN, BUT HIS FACIAL EXPRESSION IS OF COMFORT. NO DISTRESS NOTED AT THIS TIME.
--- NOTE | 2021-11-19 12:45 | NUR ---
RN NOTE COMFORT CARE MR KUNZ IS RESTING IN BED, SIDE RAILS UP X 3, BED ALARM ON, CALL LIGHT AT BEDSIDE. CONSTANT MOUTH MOVEMENT CONTINUES, THIS IS NOT NEW. HE APPEARS TO BE COMFORTABLE, NO GROANS ON REPOSITIONING, BUT HAS NOT RESPONDED TO ME WHEN I ASK HIM ABOUT PAIN. HE DID SAY HELLO BUT OTHERWISE NOT VERY VERBAL. REPOSITIONED ONTO LEFT SIDE. DIAPER CHANGED, DRISS AREA CLEANED.
--- NOTE | 2021-11-19 14:42 | NUR ---
COMFORT CARE NOTE PT IN NO DISTRESS. HIS IS IN THE ROOM WITH HIM. NO APPARANT PAIN, NO MOANS, FACIAL EXPRESSION LOOKS LIKE HE IS COMFORTABLE. REPOSITIONED ONTO RIGHT SIDE WITH PILLOWS AFTER CHANGING WET DEPENDS AND DRISS CARE DONE.
--- NOTE | 2021-11-19 17:01 | NUR ---
MR KUNZ WAS TURNED ONTO HIS BACK AT 1615 WITH THE LAST DRISS CARE, REPOSITIONING AND DIAPER CHANGE FOR URINARY INCONTINENCE. TAKING WATER PO. AT BEDSIDE. NO DISTRESS APPARANT, NO SOB, DOES NOT LOOK TO BE IN ANY PAIN OR DISCOMFORT. CONCERNED HOSPITAL BED THAT SHOULD BE DELIVERED TO HER TRAILER TOMORROW WILL NOT FIT IN THE TRAILER, SO SHE HAS ARRANGED FOR AN ALTERNATIVE ADDRESS TO GET IT DELIVERED TO. [employer] LEFT FOR CASE MANAGEMENT, BUT THEN THE JUST TOLD ME THAT THEY CALLED HER BACK AND IT'S ALL ARRANGED.
--- NOTE | 2021-11-19 18:20 | NUR ---
MR KUNZ OPENS HIS EYES TO VOICE, RESPONDS WITH ONE WORD ANSWERS AT TIMES, BUT MOST OF THE TIME IS NOT VERBAL. CONSTANT CHEWING MOTION ORALLY. HE DRANK ENSURE AND ATE APPLE SAUCE FOR HIS FOR SUPPER. NO APPARANT DISTRESS OR SOB, HE DOES NOT LOOK TO BE IN PAIN EXCEPT HE DOESN'T LIKE GETTING TURNED VERY MUCH. REPOSITIONED EVERY 2 HOURS, JUST MOVED ONTO HIS RIGHT SIDE AT THIS TIME AFTER WET DIAPER CHANGE AND DRISS CARE. PLAN FOR DISCHARGE TO HOME TOMORROW.
--- NOTE | 2021-11-20 04:16 | NUR ---
SHIFT SUMMARY COMFORT CARE. NONVERBAL. GRIMACES & MOANS WHEN REPOSITIONED THIS AM, PROVIDED 10MG ROXANOL. SOUNDS WET/GURGLING IN BACK OF THROAT THIS AM, PROVIDED PO CARE & GAVE ATROPINE DROPS TO ASSIST c SECRETIONS. INCONT OF URINE, CHANGED & REPOSITIONED PRN. PT WARM TO TOUCH, HEAVY BLANKETS REMOVED TO ASSIST c COOLING OFF. AT BEDSIDE T/O NIGHT. STATES SHE WAS ABLE TO ASSIST PT IN DRINKING ENSURE LAST NIGHT. PLAN TO DC HOME ON HOSPICE. CALL LIGHT IN REACH.
--- NOTE | 2021-11-20 08:00 | NUR ---
PATIENT RESTING COMFORTABLY, AT BEDSIDE.
[2021-11-20] MEDS ORDERED: ACETAMINOPHEN PR (09:54)
[2021-11-20] MEDS ORDERED: ATROPINE SULFATE2 M5 SL (09:57)
[2021-11-20] MEDS ORDERED: Haloperidol1 MG PO (09:58)
[2021-11-20] MEDS ORDERED: Ativan1 MG PO (09:58)
[2021-11-20] MEDS ORDERED: MORP20L SL (09:59)
[2021-11-20] MEDS ORDERED: PHENERGAN25 MG PR (10:00)
--- NOTE | 2021-11-20 12:17 | NUR ---
met with this morning for some theraputic time and strategies of self care.
--- NOTE | 2021-11-20 12:24 | NUR ---
PATIENT D/C'D TO HOME WITH HOSPICE. DC INSTRUCTIONS AND EDUCATION DISCUSSED WITH AND COPY PROVIDED. HOSPICE NURSE TO MEET WITH FAMILY THIS AFTERNOON AT THEIR HOME. DENIES ANY FURTHER QUESTIONS OR CONCERNS.
== END 2021-11-20 12:18 | disposition hospice, home (50) | DRG 83 ==
LOC: ER 12:04 → ERHOLD 19:28 → MEDS 19:28 → ERHOLD 19:54 → ICUE 21:10 → MEDS 11-18 21:04
PROVIDERS: Student in an Organized Health Care Education/Training Program; ADMIT Internal Medicine
PROC: 30233N1 Transfusion of Nonautologous Red Blood Cells into Peripheral Vein, Percutaneous Approach (ICD-10-PCS; principal; 2021-11-16)
DX: S06.5X9A Traumatic subdural hemorrhage with loss of consciousness of unspecified duration, initial encounter (principal); D61.818 Other pancytopenia; E27.40 Unspecified adrenocortical insufficiency; E44.0 Moderate protein-calorie malnutrition; G31.83 Neurocognitive disorder with Lewy bodies; E78.5 Hyperlipidemia, unspecified; Z66 Do not resuscitate; F02.80 Dementia in other diseases classified elsewhere, unspecified severity, without behavioral disturbance, psychotic disturbance, mood disturbance, and anxiety; E78.00 Pure hypercholesterolemia, unspecified; I95.1 Orthostatic hypotension; E55.9 Vitamin D deficiency, unspecified; I10 Essential (primary) hypertension; Z53.29 Procedure and treatment not carried out because of patient's decision for other reasons; Z87.891 Personal history of nicotine dependence; Z88.0 Allergy status to penicillin; Z79.899 Other long term (current) drug therapy; X58.XXXA Exposure to other specified factors, initial encounter
CPT/HCPCS: 36415; 36430; 51701; 51702; 70450; 71045; 80048; 80053; 80069; 81001; 83605; 84145; 84484; 85025; 85027; 85610; 85730; 86850; 86900; 86901; 86923; 87040; 87086; 93005; 93010; 97163; 97530; 99285-25; A9270; C1751; J7030; J7050; J7512; P9016; P9035